=== PATIENT | female | born 1955 | race American Indian/Alaskan Native ===

== ENCOUNTER 2017-01-15 13:25 | Inpatient (IN) | payer MEDICAID ==
[2017-01-15 13:25] VITALS: BMI 33.1
--- NOTE | 2017-01-15 13:52 | C.PDOC ---
History Of Present Illness <Pat Coleman - Last Filed: 01/15/17 14:53> <Lenore Singer - Last Filed: 01/18/17 14:25> 61 y/o female with Hx of asthma and Anxiety presents to ED referred by Dr. Carlin for stable angina and cath. Patient complaints of new onset sob since this morning and persistent chest pain. Patient also reports new onset intermittent right leg swelling for 1 month. Patient had prior right ankle surgery in 2013 and states she is currently wearing ankle brace "because i thought it was from that". Patient denies asthma exacerbating and does not take anxiety medication. HPI limited due to patient's clinical condition LIMITED DUE TO CLIN COND REFERRED FROM DR CARLIN FOR STABLE ANGINA, CATH. CO NEW ONSET SOB SINCE THIS MORNING, PERSIST CP. +HO ASTHMA BUT DENIES ASTHMA EXAC PS NEW ONSET INTERMIT R LEG SWELLING X 1 MONTH. HO PRIOR R ANKLE SURGERY 2013, PS WEARING ANKLE BRACE "BC I THOUGHT SWELLING WAS FROM THAT". HO ANXIETY BUT DENIES ANXIETY MED USE ROS LIMITED EXAM MOD DIST LUNGS CTA B/L NO W/R/R TACHYPNEA SPEAKING 2-3 WORD SENTENCES CV RRR SINUS TACH EXT NO EDEMA; MILD SWELL RLE, +R ANKLE BRACE WARM DRY PSYCH ANXIOUS BUT CALM COOPERATIVE, CONSOLABLE NEURO NO GROSS FOCAL DEF REMAINDER (Pat Coleman) History Per: Patient History/Exam Limitations: no limitations Onset/Duration Of Symptoms: Days Current Symptoms Are (Timing): Still Present Quality: "Pain" <Pat Coleman - Last Filed: 01/15/17 14:53> <Lenore Singer - Last Filed: 01/18/17 14:25> Time Seen by Provider: 01/15/17 13:45 Chief Complaint (Nursing): Chest Pain Past Medical History Reviewed: Historical Data, Nursing Documentation, Vital Signs - Medical History PMH: Arthritis, Asthma, Depression, HTN Other Surgeries: right Ankle surgery Family History: States: No Known Family Hx - Social History Hx Alcohol Use: No Hx Substance Use: No - Immunization History Hx Tetanus Toxoid Vaccination: No Hx Influenza Vaccination: No Hx Pneumococcal Vaccination: No <Pat Coleman - Last Filed: 01/15/17 14:53> Vital Signs: Last Vital Signs Temp 97.4 F L 01/18/17 08:52 Pulse 116 H 01/18/17 10:00 Resp 20 01/18/17 08:52 BP 154/93 H 01/18/17 10:00 Pulse Ox 92 L 01/18/17 08:52 - [employer] Procedures ANKLE FUSION (01/26/14) Review Of Systems Review Of Systems: ROS cannot be obtained secondary to pt's inabilty to answer questions. (Limited) Cardiovascular: Positive for: Chest Pain Respiratory: Positive for: Shortness of Breath <Pat Coleman - Last Filed: 01/15/17 14:53> Physical Exam - Physical Exam Appears: Other (moderate distress) Skin: Normal Color, Warm, Dry, No Rash Head: Atraumatic, Normacephalic Oral Mucosa: Moist Throat: Normal, No Erythema Cardiovascular: Rhythm Regular, No Murmur, Other (tachycardic) Respiratory: No Rales, No Rhonchi, No Wheezing, Other (CTA bilateral, Tachypnea) Extremity: No Pedal Edema, Swelling (RLE), Other (+Right ankle brace) Neurological/Psych: Oriented x3, Other (Anxious but calm, cooperative, consolable. No gross focal deficits) <Pat Coleman - Last Filed: 01/15/17 14:53> ED Course And Treatment - Laboratory Results Result Diagrams: 01/15/17 14:06 01/15/17 14:06 ECG: Interpreted By Me ECG Rhythm: Sinus Tachycardia Rate From EC (bpm) O2 Sat by Pulse Oximetry: 99 (RA) Pulse Ox Interpretation: Normal - Radiology CXR: Interpreted by Me, Viewed By Az CXR Interpretation: Yes: No Acute Disease. No: Infiltrates, Pnemothorax <Pat Coleman - Last Filed: 01/15/17 14:53> - Laboratory Results Result Diagrams: 01/18/17 08:05 01/18/17 08:05 <Lenore Singer - Last Filed: 01/18/17 14:25> Progress - Data Reviewed Data Reviewed: Lab, Diagnostic imaging, EKG, Old records <Pat Coleman - Last Filed: 01/15/17 14:53> <Lenore Singer - Last Filed: 01/18/17 14:25> - Re-Evaluation Re-evaluation Note: 01/15/17 13:52 D/W DR WESTLEY FRAGOSO W ER PLAN 01/15/17 14:03 EKG #2 SINUS TACH, HR 104 UNCH FROM PRIOR 01/15/17 14:35 APPEARS MORE COMFORTABLE, PERSIST TACHYPNEA. VSS,. PERSIST SINUS TACH (Pat Coleman) Disposition <Pat Coleman - Last Filed: 01/15/17 14:53> - Disposition Disposition Time: 16:47 <Lenore Singer - Last Filed: 01/18/17 14:25> - Disposition Disposition: HOSPITALIZED Condition: STABLE - Clinical Impression Clinical Impression: Chest pain, Stable angina, Dyspnea - Scribe Statement The provider has reviewed the documentation as recorded by the Scribe <Pat Coleman - Last Filed: 01/15/17 14:53> <Lenore Singer - Last Filed: 01/18/17 14:25> - Scribe Statement Issa Jovel All medical record entries made by the Scribe were at my direction and personally dictated by me. I have reviewed the chart and agree that the record accurately reflects my personal performance of the history, physical exam, medical decision making, and the department course for this patient. I have also personally directed, reviewed, and agree with the discharge instructions and disposition. (Pat Coleman) Physician Patient Turnover Patient Signed Over To: Lenore Singer Handoff Comments: FU CTA, DOPPLER, DISPO <Pat Coleman - Last Filed: 01/15/17 14:53> Addendum <Pat Coleman - Last Filed: 01/15/17 14:53> <Lenore Singer - Last Filed: 01/18/17 14:25> Addendum: 01/15/17 16:00 Venous doppler- tech leti lara, (-) for acute DVT RLE. 01/15/17 17:39 Accession No. : [id number] Patient Name / ID : ANIBAL ACHARYA / [id number] Exam Date : 01/15/2017 16:36:21 ( Approved ) Study Comment : Sex / Age : F / 61Y Creator : Elena Mckeon MD Dictator : Pattern Technician : Hand Cloth Folder : Elena Mckeon MD Approver2 : Report Date : 01/15/2017 17:25:59 My Comment : CTA chest PE protocol Indication: Shortness of breath, rule out PE Technique: Contiguous axial images were obtained through the chest with intravenous contrast enhancement. Sagittal and coronal reconstructions were generated and reviewed. This CT exam was performed using 1 or more of the falling dose reduction techniques: Automated exposure control, adjustment of the MAA and/or kV according to patient size, and/or use of iterative reconstruction technique. IV Contrast: 100 cc visi opaque 320 Radiation dose (DLP): 503.11 MGy-cm. Comparison: Chest x-ray performed 01/15/17 Findings: Visualized portions of the inferior thyroid gland appears mildly heterogeneous. The mediastinal and hilar vascular structures appear within normal limits. The heart appears within normal limits of size. Dense coronary artery calcifications. There is suboptimal opacification of the pulmonary arteries (less than 190 HU at the main pulmonary artery) due to limiting evaluation for pulmonary embolus. Given this limitation, there are no visible intraluminal filling defects within the central pulmonary arteries to suggest central pulmonary embolism. No focal consolidation. No pleural effusion. No pneumothorax. No suspicious pulmonary nodules measuring greater than 5 mm. Limited visualized portions of the upper abdomen demonstrates bilateral low- density renal lesions, likely cysts. Hypoattenuation of the liver compute stent with hepatic steatosis. Osseous demineralization. Degenerative changes. Kyphosis. Impression: There is suboptimal opacification of the pulmonary arteries (less than 190 HU at the main pulmonary artery) due to limiting evaluation for pulmonary embolus. Given this limitation, there are no visible intraluminal filling defects within the central pulmonary arteries to suggest central pulmonary embolism. No focal consolidation. No pleural effusion. No pneumothorax. Dense coronary artery calcifications. Mildly heterogeneous appearance of the included portions inferior thyroid gland. Limited visualized portions of the upper abdomen demonstrates bilateral low- density renal lesions, likely cysts. Hypoattenuation of the liver compute stent with hepatic steatosis. 01/15/17 17:47 Patient currently resting comfortably, denies chest pain/palpitations at this time. BP elevated 186/116 - patient has taken her Benazepril today, but not Norvasc, will order dose now. Discussed patient with hospitalist Dr. Hernandes, agrees with telemetry admission to her service with Dr. Carlin for cardiology. Diagnoses: chest pain, dyspnea, stable angina, r/o ACS - for cardiac cath by Dr. Carlin. (Lenore Singer)
[2017-01-15] MEDS ORDERED: Enoxaparin 100 mg Syringe SC STA (13:54)
[2017-01-15] MEDS ORDERED: Enoxaparin 40 mg Syringe ONE (14:06)
[2017-01-15 14:18] LABS: BASO % 0.4 % (0.0-2.0); EOS # 0.4 K/uL (0.0-0.7); EOS % 5.3 % (0.0-4.0); HEMATOCRIT 43.1 % (34.0-47.0); LYMPH # 2.7 K/uL (1.0-4.3); LYMPH % 37.9 % (20.0-40.0); MEAN CELL VOLUME 88.2 fL (81.0-99.0); MEAN CORPUSCULAR HEMOGLOBIN 29.4 pg (27.0-31.0); MEAN CORPUSCULAR HGB CONC 33.3 g/dL (33.0-37.0); MEAN PLATELET VOLUME 9.1 fL (7.2-11.7); MONO # 0.6 K/uL (0.0-0.8); MONO % 8.7 % (0.0-10.0); NRBC % 0.1 % (0.0-2.0); RED CELL DISTRIBUTION WIDTH 13.3 % (11.5-14.5); WHITE BLOOD COUNT 7.1 K/uL (4.8-10.8)
[2017-01-15 14:29] LABS: CHLORIDE 99 mmol/L (98-107); SODIUM 140 mmol/L (132-148)
[2017-01-15 14:30] LABS: POTASSIUM 3.8 mmol/L (3.6-5.2)
[2017-01-15 14:31] LABS: GFR AFRICAN-AMERICAN > 60
[2017-01-15 14:32] LABS: ALB/GLOB RATIO 1.3 (1.0-2.1); ALKALINE PHOSPHATASE 145 U/L (38-126); ALT/SGPT 83 U/L (9-52); AST/SGOT 48 U/L (14-36); BILIRUBIN,TOTAL 0.6 mg/dL (0.2-1.3); BLOOD UREA NITROGEN 14 mg/dL (7-17); CARBON DIOXIDE 20 mmol/L (22-30); GLUCOSE,RANDOM 117 mg/dL (65-105); TOTAL PROTEIN 8.1 g/dL (6.3-8.3)
[2017-01-15 14:33] LABS: CALCIUM 9.6 mg/dl (8.6-10.4)
[2017-01-15 15:05] LABS: PARTIAL THROMBOPLASTIN TIME 31 SECONDS (21-34)
[2017-01-15] MEDS ORDERED: Iodixanol 320 MG/ML 100 ML BOTTLE IV ONE (16:35)
--- NOTE | 2017-01-15 16:39 | RAD ---
PROCEDURE: CHEST RADIOGRAPH, 1 VIEW HISTORY: Shortness of breath COMPARISON: None available. FINDINGS: LUNGS: The lungs are clear. PLEURA: No pneumothorax or pleural fluid seen. CARDIOVASCULAR: Normal. OSSEOUS STRUCTURES: No significant abnormalities. VISUALIZED UPPER ABDOMEN: Normal. OTHER FINDINGS: None. IMPRESSION: No active pulmonary disease.
--- NOTE | 2017-01-15 17:27 | CT ---
CTA chest PE protocol Indication: Shortness of breath, rule out PE Technique: Contiguous axial images were obtained through the chest with intravenous contrast enhancement. Sagittal and coronal reconstructions were generated and reviewed. This CT exam was performed using 1 or more of the falling dose reduction techniques: Automated exposure control, adjustment of the MAA and/or kV according to patient size, and/or use of iterative reconstruction technique. IV Contrast: 100 cc visi opaque 320 Radiation dose (DLP): 503.11 MGy-cm. Comparison: Chest x-ray performed 01/15/17 Findings: Visualized portions of the inferior thyroid gland appears mildly heterogeneous. The mediastinal and hilar vascular structures appear within normal limits. The heart appears within normal limits of size. Dense coronary artery calcifications. There is suboptimal opacification of the pulmonary arteries (less than 190 HU at the main pulmonary artery) due to limiting evaluation for pulmonary embolus. Given this limitation, there are no visible intraluminal filling defects within the central pulmonary arteries to suggest central pulmonary embolism. No focal consolidation. No pleural effusion. No pneumothorax. No suspicious pulmonary nodules measuring greater than 5 mm. Limited visualized portions of the upper abdomen demonstrates bilateral low-density renal lesions, likely cysts. Hypoattenuation of the liver compute stent with hepatic steatosis. Osseous demineralization. Degenerative changes. Kyphosis. Impression: There is suboptimal opacification of the pulmonary arteries (less than 190 HU at the main pulmonary artery) due to limiting evaluation for pulmonary embolus. Given this limitation, there are no visible intraluminal filling defects within the central pulmonary arteries to suggest central pulmonary embolism. No focal consolidation. No pleural effusion. No pneumothorax. Dense coronary artery calcifications. Mildly heterogeneous appearance of the included portions inferior thyroid gland. Limited visualized portions of the upper abdomen demonstrates bilateral low-density renal lesions, likely cysts. Hypoattenuation of the liver compute stent with hepatic steatosis.
--- NOTE | 2017-01-15 19:34 | CP.PCM.HP ---
<JennaJocelyne - Last Filed: 01/15/17 20:13> History of Present Illness - History of Present Illness History of Present Illness: History and Physical for Dr. Hernandes Patient presents with shortness of breath which began in the morning and has lasted since arrival to the ED. Patient states she was scheduled for labor representative with Dr. Carlin. Patient was sent from the office due to her shortness of breath. Patient denies chest pain, dizziness. Patient admits to phlegm production. Patient states phlegm is a chronic thing. Patient states she's short of breath after walking usually. Patient states she had an echo on 01/01, which found some diastolic dysfunction. Patient states her winderman told her that she has something in the front of her heart. Patient was worked up for right leg swelling in the past post right ankle surgery. No findings. Patient states she had asthma as a child, which stopped when she was in her 20s. PMH: HTN, DM, asthma. Surgical history: Right ankle surgery (2013) Social Hx: Patient is a former smoker [id number] (quit 15 years ago). Patient drinks about 5 shots of vodka a day due to the fact that her son committed suicide, patient states she has God to help her through the stressors in life. FHx: father had COPD, uncle had VT Present on Admission - Present on Admission Any Indicators Present on Admission: Yes History of DVT/PE: No History of Uncontrolled Diabetes: No Past Patient History - Past Medical History & Family History Past Medical History?: Yes - Past Social History Smoking Status: Former Smoker - CARDIAC Hx Hypertension: Yes - PULMONARY Hx Asthma: Yes - NEUROLOGICAL Hx Neurological Disorder: No - HEENT Hx HEENT Problems: No - RENAL Hx Chronic Kidney Disease: No - ENDOCRINE/METABOLIC Hx Endocrine Disorders: Yes Hx Diabetes Mellitus Type 2: Yes - HEMATOLOGICAL/ONCOLOGICAL Hx Blood Disorders: No - INTEGUMENTARY Hx Dermatological Problems: No - MUSCULOSKELETAL/RHEUMATOLOGICAL Hx Arthritis: Yes - GASTROINTESTINAL Hx Gastrointestinal Disorders: No - GENITOURINARY/GYNECOLOGICAL Hx Genitourinary Disorders: No - PSYCHIATRIC Hx Depression: Yes Hx Substance Use: No - SURGICAL HISTORY Hx Surgeries: Yes Other/Comment: PERONEAL TENDON GROOVING RT ANKLE JAN 2014 - ANESTHESIA Hx Anesthesia: Yes Hx Anesthesia Reactions: No Hx Malignant Hyperthermia: No Meds Allergies/Adverse Reactions: Allergies Allergy/AdvReac Type Severity Reaction Status Date / Time phenobarbital Allergy Verified 01/15/17 13:39 Physical Exam - Constitutional Appears: In Acute Distress - Head Exam Head Exam: NORMAL INSPECTION - Eye Exam Eye Exam: EOMI, Normal appearance - ENT Exam ENT Exam: Mucous Membranes Moist - Neck Exam Neck exam: Positive for: Full Rom. Negative for: Tenderness - Respiratory Exam Respiratory Exam: Accessory Muscle Use, Decreased Breath Sounds - Cardiovascular Exam Cardiovascular Exam: REGULAR RHYTHM, +S1, +S2. absent: Bradycardia, Tachycardia - GI/Abdominal Exam GI & Abdominal Exam: Soft. absent: Firm, Guarding, Tenderness - Extremities Exam Extremities exam: Positive for: full ROM. Negative for: pedal edema Additional comments: right ankle scar from surgery - Back Exam Back exam: FULL ROM, NORMAL INSPECTION - Neurological Exam Neurological exam: Alert, Altered, Oriented x3 - Psychiatric Exam Psychiatric exam: Normal Affect, Normal Mood - Skin Skin Exam: Dry, Intact, Normal Color, Warm Results - Vital Signs Recent Vital Signs: Last Vital Signs Temp 98.9 F 01/15/17 17:49 Pulse 16 L 01/15/17 17:49 Resp 102 H 01/15/17 17:49 BP 166/109 H 01/15/17 17:49 Pulse Ox 100 01/15/17 17:49 - Labs Result Diagrams: 01/15/17 14:06 01/15/17 14:06 Labs: Laboratory Results - last 24 hr 01/15/17 01/15/17 01/15/17 14:04 14:06 14:06 WBC 7.1 RBC 4.89 Hgb 14.4 Hct 43.1 MCV 88.2 MCH 29.4 MCHC 33.3 RDW 13.3 Plt Count 328 MPV 9.1 Neut % (Auto) 47.7 L Lymph % (Auto) 37.9 Stafford % (Auto) 8.7 Eos % (Auto) 5.3 H Baso % (Auto) 0.4 Neut # 3.4 Lymph # 2.7 Stafford # 0.6 Eos # 0.4 Baso # 0.0 PT 10.7 INR 1.0 APTT 31 D-Dimer, Quantitative < 200 Sodium 140 Potassium 3.8 Chloride 99 Carbon Dioxide 20 L Anion Gap 25 H BUN 14 Creatinine 0.7 Est GFR ( Amer) > 60 Est GFR (Non-Af Amer) > 60 POC Glucose (mg/dL) Random Glucose 117 H Calcium 9.6 Total Bilirubin 0.6 AST 48 H ALT 83 H Alkaline Phosphatase 145 H Troponin I < 0.0120 NT-Pro-B Natriuret Pep 58.5 Total Protein 8.1 Albumin 4.6 Globulin 3.4 Albumin/Globulin Ratio 1.3 01/15/17 14:10 WBC RBC Hgb Hct MCV MCH MCHC RDW Plt Count MPV Neut % (Auto) Lymph % (Auto) Stafford % (Auto) Eos % (Auto) Baso % (Auto) Neut # Lymph # Stafford # Eos # Baso # PT INR APTT D-Dimer, Quantitative Sodium Potassium Chloride Carbon Dioxide Anion Gap BUN Creatinine Est GFR ( Amer) Est GFR (Non-Af Amer) POC Glucose (mg/dL) 135 H Random Glucose Calcium Total Bilirubin AST ALT Alkaline Phosphatase Troponin I NT-Pro-B Natriuret Pep Total Protein Albumin Globulin Albumin/Globulin Ratio Assessment & Plan - Assessment and Plan (Free Text) Assessment: Shortness of breath CT chest: no PE Doppler r/o DVT, f/u final read h/o asthma; mild exacerbation Abnormal stress test NS @ 50cc/hr for labor representative tomorrow with Dr. Carlin Cardiology Consult: Dr. Tesfaye RETANA, Q6H x 3 EKG mucomyst 20% 4ml Q12H ASA 81mg PO x once Norvasc 5mg PO x 1 day Diabetes Accucheck QACHS A1c in AM, Lipid Panel hold glipizide HTN benzapril/hydrochlorothiazide equivalent Hydralazine 10mg IVQ6H PRN SBP>160 Norvasc Asthma, mild intermittent albuterol 3ml Q6HR PRN Solumedrol 40mg IV Q12H Allergies trees, weather changes Tobacco use history stopped 15 years ago counseled to stop Depression, Alcohol abuse counseled to stop drinking declined psychiatry help during stay at this time PT OT evaluation Pepcid 20 mg IV Q12 Received Lovenox 100mg SQx1 Hold anticoagulation per cardiology - Date & Time Date: 01/15/17 Time: 20:18 <Sheri Hernandes V - Last Filed: 01/17/17 23:47> Results - Vital Signs Recent Vital Signs: Last Vital Signs Temp 97.8 F 01/15/17 23:47 Pulse 94 H 01/16/17 02:50 Resp 22 01/15/17 23:47 BP 179/93 H 01/16/17 06:35 Pulse Ox 97 01/15/17 23:47 - Labs Result Diagrams: 01/17/17 07:37 01/17/17 07:37 Labs: Laboratory Results - last 24 hr 01/15/17 01/15/17 01/15/17 14:04 14:06 14:06 WBC 7.1 RBC 4.89 Hgb 14.4 Hct 43.1 MCV 88.2 MCH 29.4 MCHC 33.3 RDW 13.3 Plt Count 328 MPV 9.1 Neut % (Auto) 47.7 L Lymph % (Auto) 37.9 Stafford % (Auto) 8.7 Eos % (Auto) 5.3 H Baso % (Auto) 0.4 Neut # 3.4 Lymph # 2.7 Stafford # 0.6 Eos # 0.4 Baso # 0.0 PT 10.7 INR 1.0 APTT 31 D-Dimer, Quantitative < 200 Puncture Site pCO2 pO2 HCO3 ABG pH ABG Total CO2 ABG O2 Saturation ABG Base Excess Lisandro Test ABG Potassium A-a O2 Difference Respiratory Index Glucose Lactate Liter Flow FiO2 Sodium 140 Potassium 3.8 Chloride 99 Carbon Dioxide 20 L Anion Gap 25 H BUN 14 Creatinine 0.7 Est GFR ( Amer) > 60 Est GFR (Non-Af Amer) > 60 POC Glucose (mg/dL) Random Glucose 117 H Hemoglobin A1c Calcium 9.6 Total Bilirubin 0.6 AST 48 H ALT 83 H Alkaline Phosphatase 145 H Total Creatine Kinase CK-MB (Mass) Troponin I < 0.0120 Troponin I, Quant NT-Pro-B Natriuret Pep 58.5 Total Protein 8.1 Albumin 4.6 Globulin 3.4 Albumin/Globulin Ratio 1.3 Arterial Blood Potassium 01/15/17 01/15/17 01/15/17 14:10 21:46 22:18 WBC RBC Hgb Hct MCV MCH MCHC RDW Plt Count MPV Neut % (Auto) Lymph % (Auto) Stafford % (Auto) Eos % (Auto) Baso % (Auto) Neut # Lymph # Stafford # Eos # Baso # PT INR APTT D-Dimer, Quantitative Puncture Site pCO2 pO2 HCO3 ABG pH ABG Total CO2 ABG O2 Saturation ABG Base Excess Lisandro Test ABG Potassium A-a O2 Difference Respiratory Index Glucose Lactate Liter Flow FiO2 Sodium Potassium Chloride Carbon Dioxide Anion Gap BUN Creatinine Est GFR ( Amer) Est GFR (Non-Af Amer) POC Glucose (mg/dL) 135 H 170 H Random Glucose Hemoglobin A1c Calcium Total Bilirubin AST ALT Alkaline Phosphatase Total Creatine Kinase 49 CK-MB (Mass) 0.35 Troponin I Troponin I, Quant < 0.0120 NT-Pro-B Natriuret Pep Total Protein Albumin Globulin Albumin/Globulin Ratio Arterial Blood Potassium 01/16/17 01/16/17 01/16/17 02:20 06:26 08:17 WBC RBC Hgb Hct MCV MCH MCHC RDW Plt Count MPV Neut % (Auto) Lymph % (Auto) Stafford % (Auto) Eos % (Auto) Baso % (Auto) Neut # Lymph # Stafford # Eos # Baso # PT INR APTT D-Dimer, Quantitative Puncture Site pCO2 pO2 HCO3 ABG pH ABG Total CO2 ABG O2 Saturation ABG Base Excess Lisandro Test ABG Potassium A-a O2 Difference Respiratory Index Glucose Lactate Liter Flow FiO2 Sodium Potassium Chloride Carbon Dioxide Anion Gap BUN Creatinine Est GFR ( Amer) Est GFR (Non-Af Amer) POC Glucose (mg/dL) 203 H Random Glucose Hemoglobin A1c 9.7 H Calcium Total Bilirubin AST ALT Alkaline Phosphatase Total Creatine Kinase 53 CK-MB (Mass) 0.38 Troponin I Troponin I, Quant < 0.0120 NT-Pro-B Natriuret Pep Total Protein Albumin Globulin Albumin/Globulin Ratio Arterial Blood Potassium 01/16/17 09:13 WBC RBC Hgb Hct MCV MCH MCHC RDW Plt Count MPV Neut % (Auto) Lymph % (Auto) Stafford % (Auto) Eos % (Auto) Baso % (Auto) Neut # Lymph # Stafford # Eos # Baso # PT INR APTT D-Dimer, Quantitative Puncture Site Rr pCO2 28 L pO2 88 HCO3 23.4 ABG pH 7.47 H ABG Total CO2 21.3 L ABG O2 Saturation 98.9 H ABG Base Excess -2.0 Lisandro Test Pos ABG Potassium 3.3 L A-a O2 Difference 91.0 Respiratory Index 1.0 Glucose 236 H Lactate 2.1 Liter Flow 3.0 FiO2 30.0 Sodium 138.0 Potassium Chloride 107.0 Carbon Dioxide Anion Gap BUN Creatinine Est GFR ( Amer) Est GFR (Non-Af Amer) POC Glucose (mg/dL) Random Glucose Hemoglobin A1c Calcium Total Bilirubin AST ALT Alkaline Phosphatase Total Creatine Kinase CK-MB (Mass) Troponin I Troponin I, Quant NT-Pro-B Natriuret Pep Total Protein Albumin Globulin Albumin/Globulin Ratio Arterial Blood Potassium 3.3 L Attending/Attestation - Attestation I have personally seen and examined this patient.: Yes I have fully participated in the care of the patient.: Yes I have reviewed all pertinent clinical information: Yes Notes (Text): This is late computer entry for 01/15/17. Patient seen, examined, and case discussed with day-time resident. Patient seen in ED in [facility] Bed 12 at approximately 7PM with Dr. Carlin at bedside. Spoke with Dr. Hines, patient had came into the ED with complaint of shortness of breathe at shift change--> rule out for PE and DVT. Patient had received therapuetic Lovenox 100mg subq X1 in the ED. Patient seen by Dr. Carlin, she has history of abnormal stress and previously scheduled for cardiac catheterization the morning. Recommended to hold anticoagulation for anticipated cardiac cath tomorrow. Patient started on gentle IV hydration in light of completed contrast CT earlier with mucomyst to prevent contrast induced nephropathy. Patient has history of asthma, and felt shortness of breathe overnight. Discussed admitting orders with day-time resident. Assessment/Plan 1) Shortness of breath * CT chest (01/15/17): suboptimal opacification of pulmonary arteries due to limiting evaluation for PE. No visible intraluminal filling defects within the central pulmonary arteries to suggest central PE. No focal consolidation. No pleural effusion. No pneumothorax. Dense coronary artery calcifications. Mildly heterogeneous appearance of the included portions inferior thyroid gland. Limited visualized portions of the upper abdomen demonstrates bilateral low density renal lesions, likely cysts. Hypotenuattion of liver compute stent with hepatic steatosis * Doppler r/o DVT, f/u final read * History of Asthma-->mild exacerbation; given Solumedrol 40mg IVP X1 on admission 2) h/o asthma; mild exacerbation * Given Solumedrol 40mg IV X1 * albuterol 3ml Q6HR PRN * Solumedrol 40mg IV Q12H * Allergies trees, weather changes 3) Abnormal stress test * Cardiology Consult: Dr. Cralin help appreciated * MAZIN and EKG Q6H x 3 * Prior to cath, mucomyst 20% 4ml Q12H and NS 50cc/hr * ASA 81mg PO daily 4) Diabetes * Accucheck QACHS * A1c in AM, Lipid Panel * hold glipizide 5) Hypertension * benzapril/hydrochlorothiazide equivalent-->benzapril not available on hospital formulary-->start on hospital equivalent * Hydralazine 10mg IVQ6H PRN SBP>160 * Norvasc 5mg PO X1 given for uncontrolled hypertension 6) Tobacco use history * stopped 15 years ago * Tobacco cessation provided 7) Depression, Alcohol abuse * Triggered by brother's suicide * declined psychiatry help during stay at this time 8) Prophylactic care * PT OT evaluation * Pepcid 20 mg IV Q12 * Received Lovenox 100mg SQx1 * Hold anticoagulation per cardiology
[2017-01-15] MEDS ORDERED: Albuterol HFA 90 mcg/actuation (8 g) IH PRN (19:36)
[2017-01-15] MEDS ORDERED: Sodium Chloride 0.9% 1,000 ML IV SCH (20:00)
[2017-01-15] MEDS ORDERED: Albuterol-Ipratrop 3 mg / 0.5 (3 ml) UD INH SCH (20:00)
[2017-01-15] MEDS ORDERED: Albuterol HFA 90 mcg/actuation (8 g) INH PRN (20:00)
[2017-01-15] MEDS ORDERED: MethylPREDNISolone 40 mg Vial IVP STA (20:02)
[2017-01-15] MEDS ORDERED: Sodium Chloride 0.9% 1,000 ML ONE (20:25)
[2017-01-15] MEDS: Sodium Chloride 0.9% 1,000 ML IV SCH (20:28)
[2017-01-15] MEDS ORDERED: Acetylcysteine 20% Inhal Soln (4ml) INH SCH ×2 (20:30→22:05)
[2017-01-16] MEDS: Albuterol-Ipratrop 3 mg / 0.5 (3 ml) UD INH SCH ×4 (02:47→19:21)
[2017-01-16] MEDS ORDERED: MethylPREDNISolone 40 mg Vial IVP SCH (08:00)
--- NOTE | 2017-01-16 08:36 | CP.PCM.CON ---
History of Present Illness - History of Present Illness History of Present Illness: 61 F admitted for dyspnea Positive stress test Could not cath today due to dyspnea Pulmonary consulted Will reschedule for tomorrow if stable Review of Systems - Constitutional Constitutional: absent: As Per HPI, Anorexia, Chills, Daytime Sleepiness, Excessive Sweating, Fatigue, Fever, Frequent Falls, Headache, Increased Appetite , Lethargy, Malaise, Night Sweats, Snoring, Sleep Apnea, Weight Gain, Weight Loss, Weakness, Other - EENT Eyes: absent: As Per HPI, Blind Spots, Blurred Vision, Change in Vision, Decreased Night Vision, Diplopia, Discharge, Dry Eye, Exophthalmos, Floaters, Irritation, Itchy Eyes, Loss of Peripheral Vision, Pain, Photophobia, Requires Corrective Lenses, Sees Flashes, Spots in Vision, Tunnel Vision, Other Visual Disturbances, Loss of Vision, Other Nose/Mouth/Throat: absent: As Per HPI, Epistaxis, Nasal Congestion, Nasal Discharge, Nasal Obstruction, Nasal Trauma, Nose Pain, Post Nasal Drip, Sinus Pain, Sinus Pressure, Bleeding Gums, Change in Voice, Dental Pain, Dry Mouth, Dysphagia, Halitosis, Hoarsness, Lip Swelling, Mouth Lesions, Mouth Pain, Odynophagia, Sore Throat, Throat Swelling, Tongue Swelling, Facial Pain, Neck Pain, Neck Mass, Other - Cardiovascular Cardiovascular: Dyspnea. absent: Chest Pain - Respiratory Respiratory: Dyspnea - Gastrointestinal Gastrointestinal: absent: As Per HPI, Abdominal Pain, Belching, Bloating, Change in Bowel Habits, Change in Stool Character, Coffee Ground Emesis, Constipation, Cramping, Diarrhea, Dyspepsia, Dysphagia, Early Satiety, Excessive Flatus, Fecal Incontinence, Heartburn, Hematemesis, Hematochezia, Loose Stools, Melena, Nausea, Odynophagia, Temesmus, Vomiting, Other Past Patient History - Past Medical History & Family History Past Medical History?: Yes - Past Social History Smoking Status: Former Smoker - CARDIAC Hx Cardiac Disorders: Yes Hx Hypertension: Yes - PULMONARY Hx Respiratory Disorders: Yes Hx Asthma: Yes - NEUROLOGICAL Hx Neurological Disorder: No - HEENT Hx HEENT Problems: No - RENAL Hx Chronic Kidney Disease: No - ENDOCRINE/METABOLIC Hx Endocrine Disorders: Yes Hx Diabetes Mellitus Type 2: Yes - HEMATOLOGICAL/ONCOLOGICAL Hx Blood Disorders: No - INTEGUMENTARY Hx Dermatological Problems: No - MUSCULOSKELETAL/RHEUMATOLOGICAL Hx Musculoskeletal Disorders: Yes Hx Arthritis: Yes Hx Falls: No - GASTROINTESTINAL Hx Gastrointestinal Disorders: No - GENITOURINARY/GYNECOLOGICAL Hx Genitourinary Disorders: No - PSYCHIATRIC Hx Psychophysiologic Disorder: Yes Hx Depression: Yes Hx Substance Use: Yes - SURGICAL HISTORY Hx Surgeries: Yes Other/Comment: PERONEAL TENDON GROOVING RT ANKLE JAN 2014 - ANESTHESIA Hx Anesthesia: Yes Hx Anesthesia Reactions: No Hx Malignant Hyperthermia: No Has any member of the family had a problem w/ anesthesia?: No Meds Allergies/Adverse Reactions: Allergies Allergy/AdvReac Type Severity Reaction Status Date / Time phenobarbital Allergy Verified 01/15/17 13:39 - Medications Medications: Current Medications Albuterol (Ventolin Hfa 90 Mcg/Actuation (8 G)) 1 puff INH Q6H PRN PRN Reason: Shortness of Breath Albuterol/Ipratropium (Duoneb 3 Mg/0.5 Mg (3 Ml) Ud) 3 ml INH RQ6 [facility] Last Admin: 01/16/17 08:08 Dose: Not Given Amlodipine Besylate (Norvasc) 5 mg PO DAILY [facility] Enalapril Maleate (Vasotec) 10 mg PO DAILY [facility] Famotidine (Pepcid) 20 mg PO DAILY [facility] Hydralazine HCl (Apresoline) 10 mg IVP Q6H PRN PRN Reason: Systolic Blood Pressure >160 Last Admin: 01/16/17 06:37 Dose: 10 mg Hydrochlorothiazide (Microzide) 12.5 mg PO DAILY [facility] Sodium Chloride (Sodium Chloride 0.9%) 1,000 mls @ 50 mls/hr IV .Q20H [facility] Last Admin: 01/15/17 20:28 Dose: 50 mls/hr Influenza Virus Vaccine (Afluria) 45 mcg IM .ONCE ONE Stop: 01/18/17 10:01 Methylprednisolone (Solu-Medrol) 40 mg IVP Q8H [facility] Pneumococcal Polyvalent Vaccine (Pneumovax 23 Vaccine) 0.5 ml IM .ONCE ONE Stop: 01/18/17 10:01 Zolpidem Tartrate (Ambien) 5 mg PO HS [facility] Last Admin: 01/15/17 22:46 Dose: 5 mg Physical Exam - Head Exam Head Exam: ATRAUMATIC - Eye Exam Eye Exam: EOMI, PERRL - ENT Exam ENT Exam: Mucous Membranes Moist - Neck Exam Neck exam: Positive for: Normal Inspection - Respiratory Exam Respiratory Exam: Decreased Breath Sounds - Cardiovascular Exam Cardiovascular Exam: REGULAR RHYTHM, +S1, +S2 - GI/Abdominal Exam GI & Abdominal Exam: Normal Bowel Sounds, Soft Results - Vital Signs Recent Vital Signs: Last Vital Signs Temp 97.8 F 01/15/17 23:47 Pulse 94 H 01/16/17 02:50 Resp 22 01/15/17 23:47 BP 179/93 H 01/16/17 06:35 Pulse Ox 97 01/15/17 23:47 - Labs Result Diagrams: 01/15/17 14:06 01/15/17 14:06 Labs: Laboratory Results - last 24 hr 01/15/17 01/15/17 01/15/17 14:04 14:06 14:06 WBC 7.1 RBC 4.89 Hgb 14.4 Hct 43.1 MCV 88.2 MCH 29.4 MCHC 33.3 RDW 13.3 Plt Count 328 MPV 9.1 Neut % (Auto) 47.7 L Lymph % (Auto) 37.9 [place] % (Auto) 8.7 Eos % (Auto) 5.3 H Baso % (Auto) 0.4 Neut # 3.4 Lymph # 2.7 [place] # 0.6 Eos # 0.4 Baso # 0.0 PT 10.7 INR 1.0 APTT 31 D-Dimer, Quantitative < 200 Sodium 140 Potassium 3.8 Chloride 99 Carbon Dioxide 20 L Anion Gap 25 H BUN 14 Creatinine 0.7 Est GFR ( Amer) > 60 Est GFR (Non-Af Amer) > 60 POC Glucose (mg/dL) Random Glucose 117 H Calcium 9.6 Total Bilirubin 0.6 AST 48 H ALT 83 H Alkaline Phosphatase 145 H Total Creatine Kinase CK-MB (Mass) Troponin I < 0.0120 Troponin I, Quant NT-Pro-B Natriuret Pep 58.5 Total Protein 8.1 Albumin 4.6 Globulin 3.4 Albumin/Globulin Ratio 1.3 01/15/17 01/15/17 01/15/17 14:10 21:46 22:18 WBC RBC Hgb Hct MCV MCH MCHC RDW Plt Count MPV Neut % (Auto) Lymph % (Auto) [place] % (Auto) Eos % (Auto) Baso % (Auto) Neut # Lymph # [place] # Eos # Baso # PT INR APTT D-Dimer, Quantitative Sodium Potassium Chloride Carbon Dioxide Anion Gap BUN Creatinine Est GFR ( Amer) Est GFR (Non-Af Amer) POC Glucose (mg/dL) 135 H 170 H Random Glucose Calcium Total Bilirubin AST ALT Alkaline Phosphatase Total Creatine Kinase 49 CK-MB (Mass) 0.35 Troponin I Troponin I, Quant < 0.0120 NT-Pro-B Natriuret Pep Total Protein Albumin Globulin Albumin/Globulin Ratio 01/16/17 01/16/17 02:20 06:26 WBC RBC Hgb Hct MCV MCH MCHC RDW Plt Count MPV Neut % (Auto) Lymph % (Auto) [place] % (Auto) Eos % (Auto) Baso % (Auto) Neut # Lymph # [place] # Eos # Baso # PT INR APTT D-Dimer, Quantitative Sodium Potassium Chloride Carbon Dioxide Anion Gap BUN Creatinine Est GFR ( Amer) Est GFR (Non-Af Amer) POC Glucose (mg/dL) 203 H Random Glucose Calcium Total Bilirubin AST ALT Alkaline Phosphatase Total Creatine Kinase 53 CK-MB (Mass) 0.38 Troponin I Troponin I, Quant < 0.0120 NT-Pro-B Natriuret Pep Total Protein Albumin Globulin Albumin/Globulin Ratio Assessment & Plan - Assessment and Plan (Free Text) Assessment: 1. CAD with abnormal stress test 2. dyspnea at rest 3. DM 2 For cath once patient beathing improves NO Pulmoary Embolism, ProBNP and d dimres normal Continue ASA and DVT/GI prophylaxis
[2017-01-16 09:17] LABS: ABG ALLEN TEST POS; DRAW SITE RR
[2017-01-16] MEDS: MethylPREDNISolone 40 mg Vial IVP SCH ×2 (09:50→17:04)
--- NOTE | 2017-01-16 11:18 | CP.PCM.PN ---
Addendum entered and electronically signed by Jocelyne West DO 01/16/17 13:38: CT chest showed: suboptimal opacification of pulmonary arteries <190 HU, no visible intraluminal filling defects to suggest central pulmonary embolism Original Note: <Jocelyne West - Last Filed: 01/16/17 11:27> Subjective - Date & Time of Evaluation Date of Evaluation: 01/16/17 Time of Evaluation: 11:15 - Subjective Subjective: Internal Medicine progress note for Dr. Hernandes Patient seen an examined at bedside. Patient states she's feeling better today than yesterday. Patient states she has a headache and that her blood pressure is high today. Patient denies nausea, fever, chills, vomiting, chest pain. Patient admits to shortness of breath. Patient was scheduled for label rewinder today by Dr. Carlin, but was found to be too dysnpeic. Pulmonology consult was ordered this morning. Objective - Vital Signs/Intake and Output Vital Signs (last 24 hours): Temp Pulse Resp BP Pulse Ox 97.8 F 94 H 22 153/92 H 97 01/15/17 23:47 01/16/17 02:50 01/15/17 23:47 01/16/17 11:00 01/15/17 23:47 - Medications Medications: Current Medications Albuterol (Ventolin Hfa 90 Mcg/Actuation (8 G)) 1 puff INH Q6H PRN PRN Reason: Shortness of Breath Albuterol/Ipratropium (Duoneb 3 Mg/0.5 Mg (3 Ml) Ud) 3 ml INH RQ6 [facility] Last Admin: 01/16/17 08:08 Dose: Not Given Amlodipine Besylate (Norvasc) 5 mg PO DAILY [facility] Last Admin: 01/16/17 11:00 Dose: 5 mg Enalapril Maleate (Vasotec) 10 mg PO DAILY [facility] Last Admin: 01/16/17 11:00 Dose: 10 mg Famotidine (Pepcid) 20 mg PO DAILY [facility] Last Admin: 01/16/17 11:00 Dose: 20 mg Hydralazine HCl (Apresoline) 10 mg IVP Q6H PRN PRN Reason: Systolic Blood Pressure >160 Last Admin: 01/16/17 06:37 Dose: 10 mg Hydrochlorothiazide (Microzide) 12.5 mg PO DAILY [facility] Last Admin: 01/16/17 11:00 Dose: 12.5 mg Sodium Chloride (Sodium Chloride 0.9%) 1,000 mls @ 50 mls/hr IV .Q20H [facility] Last Admin: 01/15/17 20:28 Dose: 50 mls/hr Ibuprofen (Motrin Tab) 400 mg PO STAT [facility] Stop: 01/16/17 11:14 Influenza Virus Vaccine (Afluria) 45 mcg IM .ONCE ONE Stop: 01/18/17 10:01 Methylprednisolone (Solu-Medrol) 40 mg IVP Q8H [facility] Last Admin: 01/16/17 09:50 Dose: 40 mg Pneumococcal Polyvalent Vaccine (Pneumovax 23 Vaccine) 0.5 ml IM .ONCE ONE Stop: 01/18/17 10:01 Zolpidem Tartrate (Ambien) 5 mg PO HS [facility] Last Admin: 01/15/17 22:46 Dose: 5 mg - Labs Labs: 01/15/17 14:06 01/15/17 14:06 PT 10.7 SECONDS (9.7-12.2) 01/15/17 14:04 INR 1.0 01/15/17 14:04 APTT 31 SECONDS (21-34) 01/15/17 14:04 - Constitutional Appears: Non-toxic, Other (patient appears comfortable, with no respiratory distress. ) - Eye Exam Eye Exam: EOMI - ENT Exam ENT Exam: Mucous Membranes Moist - Neck Exam Neck Exam: Full ROM - Respiratory Exam Respiratory Exam: NORMAL BREATHING PATTERN. absent: Accessory Muscle Use, Respiratory Distress - Cardiovascular Exam Cardiovascular Exam: REGULAR RHYTHM, +S1, +S2. absent: Bradycardia - GI/Abdominal Exam GI & Abdominal Exam: Soft. absent: Tenderness - Extremities Exam Extremities Exam: Full ROM. absent: Pedal Edema - Neurological Exam Neurological Exam: Alert, Awake, Oriented x3 - Psychiatric Exam Psychiatric exam: Normal Affect, Normal Mood - Skin Skin Exam: Dry, Intact, Normal Color, Warm Assessment and Plan - Assessment and Plan (Free Text) Assessment: Shortness of breath CT chest: no PE Doppler r/o DVT, f/u final read Pulmonology consult: Dr. 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 Carlin Cardiology Consult: Dr. Tesfaye RETANA, Q6H x 3 EKG mucomyst 20% 4ml Q12H ASA 81mg POQD per Cardiology Norvasc 5mg PO x 1 day Diabetes Accucheck QACHS A1c in AM, Lipid Panel hold glipizide HTN benzapril/hydrochlorothiazide equivalent Hydralazine 10mg IVQ6H PRN SBP>160 Norvasc Asthma, mild intermittent albuterol 3ml Q6HR PRN Solumedrol 40mg IV Q12H Allergies trees, weather changes h/o asthma; mild exacerbation Tobacco use history stopped 15 years ago counseled to stop Depression, Alcohol abuse counseled to stop drinking declined psychiatry help during stay at this time PT OT evaluation Headache Motrin 400mg stat dose Prophylaxis Pepcid 20 mg IV Q12 Received Lovenox 100mg SQx1 Continue ASA and DVT/GI prophylaxis 01/16 per Cardio Cath Procedure tomorrow per Dr. Carlin if patient is stable. <Sheri Hernandes V - Last Filed: 01/17/17 23:57> Objective - Vital Signs/Intake and Output Vital Signs (last 24 hours): Temp Pulse Resp BP Pulse Ox 98.0 F 114 H 20 133/77 95 01/17/17 16:00 01/17/17 18:00 01/17/17 16:00 01/17/17 16:00 01/17/17 16:00 Intake and Output: 01/17/17 01/18/17 18:59 06:59 Intake Total 220 Balance 220 - Medications Medications: Current Medications Acetaminophen (Tylenol 325mg Tab) 650 mg PO Q6 PRN PRN Reason: Pain, Mild (1-3) Albuterol (Ventolin Hfa 90 Mcg/Actuation (8 G)) 1 puff INH Q6H PRN PRN Reason: Shortness of Breath Albuterol/Ipratropium (Duoneb 3 Mg/0.5 Mg (3 Ml) Ud) 3 ml INH RQ6 [facility] Last Admin: 01/17/17 20:17 Dose: 3 ml Amlodipine Besylate (Norvasc) 5 mg PO DAILY [facility] Last Admin: 01/17/17 10:46 Dose: 5 mg Aspirin (Ecotrin) 81 mg PO DAILY [facility] Last Admin: 01/17/17 15:20 Dose: 81 mg Dextrose (Dextrose 50% Inj) 0 ml IV STAT PRN; Protocol PRN Reason: Hyglycemia Protocol Dextrose (Glutose 15) 0 gm PO ONCE PRN; Protocol PRN Reason: Hypoglycemia Protocol Enalapril Maleate (Vasotec) 10 mg PO DAILY [facility] Last Admin: 01/17/17 10:46 Dose: 10 mg Famotidine (Pepcid) 20 mg PO DAILY [facility] Last Admin: 01/17/17 10:46 Dose: 20 mg Glipizide (Glucotrol) 5 mg PO DAILY [facility] Last Admin: 01/17/17 10:46 Dose: 5 mg Glucagon (Glucagen Diagnostic Kit) 0 mg IM STAT PRN; Protocol PRN Reason: Hypoglycemia Protocol Hydralazine HCl (Apresoline) 10 mg IVP Q6H PRN PRN Reason: Systolic Blood Pressure >160 Last Admin: 01/16/17 06:37 Dose: 10 mg Hydrochlorothiazide (Microzide) 12.5 mg PO DAILY [facility] Last Admin: 01/17/17 10:46 Dose: 12.5 mg Sodium Chloride (Sodium Chloride 0.45%) 1,000 mls @ 70 mls/hr IV .[id number] [facility] Stop: 01/18/17 03:00 Last Admin: 01/17/17 21:31 Dose: Not Given Dextrose (Dextrose 5% In Water 1000 Ml) 1,000 mls @ 0 mls/hr IV .Q0M PRN; Protocol; Per Protocol PRN Reason: Hypoglycemia Protocol Methylprednisolone (Solu-Medrol) 40 mg IVP Q12 [facility] Last Admin: 01/17/17 22:02 Dose: 40 mg Morphine Sulfate (Morphine) 1 mg IVP Q4 PRN PRN Reason: Pain, moderate (4-7) Last Admin: 01/17/17 17:20 Dose: 1 mg Pneumococcal Polyvalent Vaccine (Pneumovax 23 Vaccine) 0.5 ml IM .ONCE ONE Stop: 01/18/17 10:01 Zolpidem Tartrate (Ambien) 5 mg PO HS [facility] Last Admin: 01/17/17 22:01 Dose: 5 mg - Labs Labs: 01/17/17 07:37 01/17/17 07:37 PT 10.7 SECONDS (9.7-12.2) 01/15/17 14:04 INR 1.0 01/15/17 14:04 APTT 32 SECONDS (21-34) 01/16/17 16:48 Attending/Attestation - Attestation I have personally seen and examined this patient.: Yes I have fully participated in the care of the patient.: Yes I have reviewed all pertinent clinical information, including history, physical exam and plan: Yes Notes (Text): This is late computer entry for 01/16/17. Patient seen, examined and case discussed with day-time resident. Discussed with cardiology, patient's cardiac cath was cancelled this morning. Patient unable to tolerate lying and reporting shortness of breathe. Cardiology requesting for pulmonary consult. Patient ordered for ABG this morning. Patient is not hypoxic. Increased Solumedrol 40mg IV Q8H Ordered for urine legionella, mycoplasma IgM, Strep pneumonia urine, and influenza Cardiology to attempt cardiac cath tomorrow 01/17/17 Assessment/Plan 1) Shortness of breath * CT chest (01/15/17): suboptimal opacification of pulmonary arteries due to limiting evaluation for PE. No visible intraluminal filling defects within the central pulmonary arteries to suggest central PE. No focal consolidation. No pleural effusion. No pneumothorax. Dense coronary artery calcifications. Mildly heterogeneous appearance of the included portions inferior thyroid gland. Limited visualized portions of the upper abdomen demonstrates bilateral low density renal lesions, likely cysts. Hypotenuattion of liver compute stent with hepatic steatosis * Doppler r/o DVT, f/u final read * d-dimer:negative * History of Asthma-->mild exacerbation; given Solumedrol 40mg IVP X1 on admission 2) h/o asthma; mild exacerbation * Pulmonary, Dr. Parar on consult * ABG ordered * Given Solumedrol 40mg IV X1 on admission * albuterol 3ml Q6HR PRN * Solumedrol 40mg IV Q8H * Triggers: Allergies trees, weather changes * CT chest (01/15/17): suboptimal opacification of pulmonary arteries due to limiting evaluation for PE. No visible intraluminal filling defects within the central pulmonary arteries to suggest central PE. No focal consolidation. No pleural effusion. No pneumothorax. Dense coronary artery calcifications. Mildly heterogeneous appearance of the included portions inferior thyroid gland. Limited visualized portions of the upper abdomen demonstrates bilateral low density renal lesions, likely cysts. Hypotenuattion of liver compute stent with hepatic steatosis 3) Abnormal stress test * Cardiology Consult: Dr. Carlin help appreciated * MAZIN X3: negative * Prior to cath, mucomyst 20% 4ml Q12H and NS 50cc/hr * Rescheduled for tomorrow 01/17 following evaluation by pulm * ASA 81mg PO daily 4) Diabetes * Accucheck QACHS * A1c:9.7 uncontrolled Lipid Panel: T, chol: 175, LDL:74 HDL:76 * hold glipizide on admission 5) Hypertension * benzapril/hydrochlorothiazide equivalent-->benzapril not available on hospital formulary-->start on hospital equivalent: Enalapril 10mg PO daily and HCTZ 12.5mg PO daily * Hydralazine 10mg IVQ6H PRN SBP>160 * Norvasc 5mg PO daily 6) Tobacco use history * stopped 15 years ago * Tobacco cessation provided 7) Depression, Alcohol abuse * Triggered by brother's suicide * declined psychiatry help during stay at this time * Ambien 5mg PO qHS (takes 10mg PO qhs for insomnia at [facility]) 8) Prophylactic care * PT OT evaluation * Pepcid 20 mg IV Q12 * Heparin dvt started and held secondary to cardiac cath tomorrow
[2017-01-16 13:16] LABS: BASO # 0.1 K/uL (0.0-0.2); BASO % 0.8 % (0.0-2.0); EOS % 0.3 % (0.0-4.0); LYMPH # 1.9 K/uL (1.0-4.3); MEAN CELL VOLUME 89.2 fL (81.0-99.0); MEAN CORPUSCULAR HEMOGLOBIN 29.2 pg (27.0-31.0); MEAN CORPUSCULAR HGB CONC 32.8 g/dL (33.0-37.0); MEAN PLATELET VOLUME 8.2 fL (7.2-11.7); MONO # 0.7 K/uL (0.0-0.8); MONO % 7.7 % (0.0-10.0); RED CELL DISTRIBUTION WIDTH 15.1 % (11.5-14.5); WHITE BLOOD COUNT 9.7 K/uL (4.8-10.8)
[2017-01-16 13:34] LABS: CHOLESTEROL 175 mg/dL (0-199)
--- NOTE | 2017-01-16 13:47 | VASCLAB ---
PROCEDURE: Right Lower Extremity Venous Duplex Exam. HISTORY: SWELLING PRIORS: None. TECHNIQUE: Right common femoral, femoral, popliteal and posterior tibial, peroneal and great saphenous veins were evaluated. Flow was assessed with color Doppler, compressibility, assessment of phasic flow and augmentation response. Report prepared by FORTINO Flanagan, RVT FINDINGS: RIGHT: 1. Common Femoral Vein: 1.1. Compressibility - Fully compressible: Thrombus - None: Flow - Phasic: Augmentation -Normal: Reflux - None. 2. Femoral Vein: 2.1. Compressibility - Fully compressible: Thrombus - None: Flow - Phasic: Augmentation -Normal: Reflux - None. 3. Popliteal Vein: 3.1. Compressibility - Fully compressible: Thrombus - None: Flow - Phasic: Augmentation -Normal: Reflux - None. 4. Posterior Tibial Vein: 4.1. Compressibility - Fully compressible: Thrombus - None: Flow - Phasic: Augmentation -Normal: Reflux - None. 5. Peroneal Vein: 5.1. Compressibility - Fully compressible: Thrombus - None: Flow - Phasic: Augmentation -Normal: Reflux - None. 6. Great Saphenous Vein: 6.1. Compressibility - Fully compressible: Thrombus -None: Flow - Phasic: Augmentation - Normal: Reflux - None. OTHER FINDINGS: IMPRESSION: No evidence of deep or superficial vein thrombosis of the right lower extremity with excellent venous flow. Normal valve function noted of the right side. Normal venous flow noted in the left common femoral vein.
[2017-01-16] MEDS: Sodium Chloride 0.9% 1,000 ML IV SCH ×2 (17:07→19:49)
[2017-01-16 20:08] LABS: MONO # 0.2 K/uL (0.0-0.8)
[2017-01-16 20:10] LABS: BASO % 0.3 % (0.0-2.0); HEMATOCRIT 40.4 % (34.0-47.0); LYMPH # 0.7 K/uL (1.0-4.3); MEAN CELL VOLUME 89.5 fL (81.0-99.0); MEAN CORPUSCULAR HEMOGLOBIN 29.5 pg (27.0-31.0); MEAN CORPUSCULAR HGB CONC 32.9 g/dL (33.0-37.0); MONO % 2.7 % (0.0-10.0); RED CELL DISTRIBUTION WIDTH 13.5 % (11.5-14.5); WHITE BLOOD COUNT 7.4 K/uL (4.8-10.8)
[2017-01-16 20:17] LABS: CHLORIDE 96 mmol/L (98-107)
[2017-01-16 20:18] LABS: POTASSIUM 3.8 mmol/L (3.6-5.2); SODIUM 135 mmol/L (132-148)
[2017-01-16 20:20] LABS: ALB/GLOB RATIO 1.3 (1.0-2.1); ALKALINE PHOSPHATASE 120 U/L (38-126); AST/SGOT 26 U/L (14-36); BILIRUBIN,TOTAL 0.6 mg/dL (0.2-1.3); BLOOD UREA NITROGEN 16 mg/dL (7-17); CARBON DIOXIDE 18 mmol/L (22-30); GFR AFRICAN-AMERICAN > 60; GLUCOSE,RANDOM 239 mg/dL (65-105); TOTAL PROTEIN 7.6 g/dL (6.3-8.3)
[2017-01-16 20:21] LABS: ALT/SGPT 65 U/L (9-52); CALCIUM 9.9 mg/dl (8.6-10.4)
[2017-01-17] MEDS: MethylPREDNISolone 40 mg Vial IVP SCH ×3 (00:32→22:02)
[2017-01-17] MEDS: Albuterol-Ipratrop 3 mg / 0.5 (3 ml) UD INH SCH ×4 (01:18→20:17)
[2017-01-17 07:45] LABS: BASO % 0.1 % (0.0-2.0); HEMATOCRIT 39.1 % (34.0-47.0); LYMPH # 0.5 K/uL (1.0-4.3); LYMPH % 6.6 % (20.0-40.0); MEAN CELL VOLUME 89.9 fL (81.0-99.0); MEAN CORPUSCULAR HEMOGLOBIN 29.4 pg (27.0-31.0); MEAN CORPUSCULAR HGB CONC 32.6 g/dL (33.0-37.0); MEAN PLATELET VOLUME 9.3 fL (7.2-11.7); MONO # 0.2 K/uL (0.0-0.8); MONO % 2.9 % (0.0-10.0); PLATELET COUNT 285 K/uL (130-400); RED CELL DISTRIBUTION WIDTH 13.4 % (11.5-14.5); WHITE BLOOD COUNT 7.3 K/uL (4.8-10.8)
[2017-01-17 07:54] LABS: CHLORIDE 100 mmol/L (98-107); SODIUM 136 mmol/L (132-148)
[2017-01-17 07:56] LABS: ALB/GLOB RATIO 1.2 (1.0-2.1); AST/SGOT 27 U/L (14-36); BILIRUBIN,TOTAL 0.4 mg/dL (0.2-1.3); CARBON DIOXIDE 21 mmol/L (22-30); GFR AFRICAN-AMERICAN > 60; TOTAL PROTEIN 6.8 g/dL (6.3-8.3)
[2017-01-17 07:57] LABS: ALKALINE PHOSPHATASE 103 U/L (38-126); ALT/SGPT 55 U/L (9-52); BLOOD UREA NITROGEN 18 mg/dL (7-17); CALCIUM 9.7 mg/dl (8.6-10.4); GLUCOSE,RANDOM 278 mg/dL (65-105)
[2017-01-17 08:43] LABS: NEUTROPHIL 85 % (50-75); TOTAL CELLS COUNTED 100
[2017-01-17 08:44] LABS: LARGE PLATELETS PRESENT
[2017-01-17] MEDS ORDERED: Midazolam 2 MG/2 ML VIAL ONE (13:12)
--- NOTE | 2017-01-17 14:11 | CP.PCM.PN ---
<Jocelyne West - Last Filed: 01/17/17 14:17> Subjective - Date & Time of Evaluation Date of Evaluation: 01/17/17 Time of Evaluation: 14:10 - Subjective Subjective: Internal Medicine progress note for Dr. Hernandes Patient seen an examined at bedside. Patient states she's feeling better today than yesterday. 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 Patient denies nausea, fever, chills, vomiting, chest pain. Patient admits to shortness of breath and is anxious about the procedure. Patient was explained the procedure and patient was less anxious. Objective - Vital Signs/Intake and Output Vital Signs (last 24 hours): Temp Pulse Resp BP Pulse Ox 98.3 F 101 H 18 132/80 96 01/17/17 07:50 01/17/17 07:50 01/17/17 07:50 01/17/17 10:46 01/17/17 07:50 Intake and Output: 01/17/17 01/17/17 06:59 18:59 Intake Total 900 Balance 900 - Medications Medications: Current Medications Albuterol (Ventolin Hfa 90 Mcg/Actuation (8 G)) 1 puff INH Q6H PRN PRN Reason: Shortness of Breath Albuterol/Ipratropium (Duoneb 3 Mg/0.5 Mg (3 Ml) Ud) 3 ml INH RQ6 [facility] Last Admin: 01/17/17 13:40 Dose: Not Given Amlodipine Besylate (Norvasc) 5 mg PO DAILY [facility] Last Admin: 01/17/17 10:46 Dose: 5 mg Enalapril Maleate (Vasotec) 10 mg PO DAILY [facility] Last Admin: 01/17/17 10:46 Dose: 10 mg Famotidine (Pepcid) 20 mg PO DAILY [facility] Last Admin: 01/17/17 10:46 Dose: 20 mg Glipizide (Glucotrol) 5 mg PO DAILY [facility] Last Admin: 01/17/17 10:46 Dose: 5 mg Hydralazine HCl (Apresoline) 10 mg IVP Q6H PRN PRN Reason: Systolic Blood Pressure >160 Last Admin: 01/16/17 06:37 Dose: 10 mg Hydrochlorothiazide (Microzide) 12.5 mg PO DAILY [facility] Last Admin: 01/17/17 10:46 Dose: 12.5 mg Methylprednisolone (Solu-Medrol) 40 mg IVP Q12 [facility] Pneumococcal Polyvalent Vaccine (Pneumovax 23 Vaccine) 0.5 ml IM .ONCE ONE Stop: 01/18/17 10:01 Zolpidem Tartrate (Ambien) 5 mg PO HS [facility] Last Admin: 01/16/17 21:14 Dose: 5 mg - Labs Labs: 01/17/17 07:37 01/17/17 07:37 PT 10.7 SECONDS (9.7-12.2) 01/15/17 14:04 INR 1.0 01/15/17 14:04 APTT 32 SECONDS (21-34) 01/16/17 16:48 - Constitutional Appears: Non-toxic - Head Exam Head Exam: NORMAL INSPECTION - Eye Exam Eye Exam: EOMI, Normal appearance - ENT Exam ENT Exam: Mucous Membranes Moist - Neck Exam Neck Exam: Full ROM - Respiratory Exam Respiratory Exam: Clear to Ausculation Bilateral, NORMAL BREATHING PATTERN. absent: Accessory Muscle Use, Respiratory Distress - Cardiovascular Exam Cardiovascular Exam: Tachycardia, REGULAR RHYTHM, +S1, +S2 - GI/Abdominal Exam GI & Abdominal Exam: Soft. absent: Tenderness - Exam Exam: NORMAL INSPECTION - Extremities Exam Extremities Exam: Full ROM, Normal Inspection. absent: Pedal Edema - Neurological Exam Neurological Exam: Alert, Awake, Oriented x3 - Psychiatric Exam Psychiatric exam: Normal Affect, Normal Mood - Skin Skin Exam: Dry, Intact, Normal Color, Warm Assessment and Plan - Assessment and Plan (Free Text) Assessment: Shortness of breath CT chest: no PE Doppler r/o DVT, f/u final read Pulmonology consult: Dr. 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 Tesfaye RETANA, Q6H x 3 EKG mucomyst 20% 4ml Q12H ASA 81mg POQD per Cardiology Norvasc 5mg PO x 1 day Diabetes Accucheck QACHS A1c in AM, Lipid Panel hold glipizide HTN benzapril/hydrochlorothiazide equivalent Hydralazine 10mg IVQ6H PRN SBP>160 Norvasc Asthma, mild intermittent, dyspnea albuterol 3ml Q6HR PRN Solumedrol 40mg IV Q12H Allergies trees, weather changes h/o asthma; mild exacerbation 01/16: CT chest showed: suboptimal opacification of pulmonary arteries <190 HU, no visible intraluminal filling defects to suggest central pulmonary embolism Tobacco use history stopped 15 years ago counseled to stop Depression, Alcohol abuse counseled to stop drinking declined psychiatry help during stay at this time PT OT evaluation Headache Motrin 400mg stat dose Prophylaxis Pepcid 20 mg IV Q12 Received Lovenox 100mg SQx1 Continue ASA and DVT/GI prophylaxis 01/16 per Cardio Cath procedure today. Lungs clear per Pulmonology Consult: Dr. Parra <Sheri Hernandes V - Last Filed: 01/18/17 00:03> Objective - Vital Signs/Intake and Output Vital Signs (last 24 hours): Temp Pulse Resp BP Pulse Ox 98.1 F 106 H 20 124/74 96 01/17/17 23:52 01/17/17 23:52 01/17/17 23:52 01/17/17 23:52 01/17/17 23:52 Intake and Output: 01/17/17 01/18/17 18:59 06:59 Intake Total 220 Balance 220 - Medications Medications: Current Medications Acetaminophen (Tylenol 325mg Tab) 650 mg PO Q6 PRN PRN Reason: Pain, Mild (1-3) Albuterol (Ventolin Hfa 90 Mcg/Actuation (8 G)) 1 puff INH Q6H PRN PRN Reason: Shortness of Breath Albuterol/Ipratropium (Duoneb 3 Mg/0.5 Mg (3 Ml) Ud) 3 ml INH RQ6 [facility] Last Admin: 01/17/17 20:17 Dose: 3 ml Amlodipine Besylate (Norvasc) 5 mg PO DAILY [facility] Last Admin: 01/17/17 10:46 Dose: 5 mg Aspirin (Ecotrin) 81 mg PO DAILY [facility] Last Admin: 01/17/17 15:20 Dose: 81 mg Dextrose (Dextrose 50% Inj) 0 ml IV STAT PRN; Protocol PRN Reason: Hyglycemia Protocol Dextrose (Glutose 15) 0 gm PO ONCE PRN; Protocol PRN Reason: Hypoglycemia Protocol Enalapril Maleate (Vasotec) 10 mg PO DAILY [facility] Last Admin: 01/17/17 10:46 Dose: 10 mg Famotidine (Pepcid) 20 mg PO DAILY [facility] Last Admin: 01/17/17 10:46 Dose: 20 mg Glipizide (Glucotrol) 5 mg PO DAILY [facility] Last Admin: 01/17/17 10:46 Dose: 5 mg Glucagon (Glucagen Diagnostic Kit) 0 mg IM STAT PRN; Protocol PRN Reason: Hypoglycemia Protocol Hydralazine HCl (Apresoline) 10 mg IVP Q6H PRN PRN Reason: Systolic Blood Pressure >160 Last Admin: 01/16/17 06:37 Dose: 10 mg Hydrochlorothiazide (Microzide) 12.5 mg PO DAILY [facility] Last Admin: 01/17/17 10:46 Dose: 12.5 mg Sodium Chloride (Sodium Chloride 0.45%) 1,000 mls @ 70 mls/hr IV .[id number] [facility] Stop: 01/18/17 03:00 Last Admin: 01/17/17 21:31 Dose: Not Given Dextrose (Dextrose 5% In Water 1000 Ml) 1,000 mls @ 0 mls/hr IV .Q0M PRN; Protocol; Per Protocol PRN Reason: Hypoglycemia Protocol Methylprednisolone (Solu-Medrol) 40 mg IVP Q12 [facility] Last Admin: 01/17/17 22:02 Dose: 40 mg Morphine Sulfate (Morphine) 1 mg IVP Q4 PRN PRN Reason: Pain, moderate (4-7) Last Admin: 01/17/17 17:20 Dose: 1 mg Pneumococcal Polyvalent Vaccine (Pneumovax 23 Vaccine) 0.5 ml IM .ONCE ONE Stop: 01/18/17 10:01 Zolpidem Tartrate (Ambien) 5 mg PO HS [facility] Last Admin: 01/17/17 22:01 Dose: 5 mg - Labs Labs: 01/17/17 07:37 01/17/17 07:37 PT 10.7 SECONDS (9.7-12.2) 01/15/17 14:04 INR 1.0 01/15/17 14:04 APTT 32 SECONDS (21-34) 01/16/17 16:48 Attending/Attestation - Attestation I have personally seen and examined this patient.: Yes I have fully participated in the care of the patient.: Yes I have reviewed all pertinent clinical information, including history, physical exam and plan: Yes Notes (Text): Patient seen, examined, and case discussed with day-time resident. Patient seen prior to cardiac cath. patient reports she feels anxious. I am able to lay patient flat in her and she is able to tolerate it. Lung exam is clear. Resident spoke with pulmonary lungs also sound clear. Discussed with patient at bedside, patient is recommended for sleep studies. Patient underwent cardiac cath today-->nonobstructive coronaries and normal EF Titrated down the Iv steroids. Assessment/Plan 1) Shortness of breath * CT chest (01/15/17): suboptimal opacification of pulmonary arteries due to limiting evaluation for PE. No visible intraluminal filling defects within the central pulmonary arteries to suggest central PE. No focal consolidation. No pleural effusion. No pneumothorax. Dense coronary artery calcifications. Mildly heterogeneous appearance of the included portions inferior thyroid gland. Limited visualized portions of the upper abdomen demonstrates bilateral low density renal lesions, likely cysts. Hypotenuattion of liver compute stent with hepatic steatosis * Doppler r/o DVT, f/u final read * d-dimer:negative * History of Asthma-->mild exacerbation; given Solumedrol 40mg IVP X1 on admission 2) h/o asthma; mild exacerbation * Pulmonary, Dr. Parra on consult * ABG ordered * Given Solumedrol 40mg IV X1 on admission * albuterol 3ml Q6HR PRN * Decrease to Solumedrol 40mg IV Q12H * Triggers: Allergies trees, weather changes * CT chest (01/15/17): suboptimal opacification of pulmonary arteries due to limiting evaluation for PE. No visible intraluminal filling defects within the central pulmonary arteries to suggest central PE. No focal consolidation. No pleural effusion. No pneumothorax. Dense coronary artery calcifications. Mildly heterogeneous appearance of the included portions inferior thyroid gland. Limited visualized portions of the upper abdomen demonstrates bilateral low density renal lesions, likely cysts. Hypotenuattion of liver compute stent with hepatic steatosis 3) Abnormal stress test * Cardiology Consult: Dr. Carlin help appreciated * AMZIN X3: negative * Prior to cath, mucomyst 20% 4ml Q12H and NS 50cc/hr * ASA 81mg PO daily * Cardiac cath today-->nonobstructive coronaries and normal EF 4) Diabetes * Accucheck QACHS * A1c:9.7 uncontrolled Lipid Panel: T, chol: 175, LDL:74 HDL:76 * will restart tomorrow glipizide on admission * Hypoglycemic protocol in place 5) Hypertension * benzapril/hydrochlorothiazide equivalent-->benzapril not available on hospital formulary-->start on hospital equivalent: Enalapril 10mg PO daily and HCTZ 12.5mg PO daily * Hydralazine 10mg IVQ6H PRN SBP>160 * Norvasc 5mg PO daily 6) Tobacco use history * stopped 15 years ago * Tobacco cessation provided 7) Depression, Alcohol abuse * Triggered by brother's suicide * declined psychiatry help during stay at this time * Ambien 5mg PO qHS (takes 10mg PO qhs for insomnia at [facility]) 8) Prophylactic care * PT: home with services * Pepcid 20 mg IV Q12 * Heparin dvt started for tomorrow Disposition: Pending cardiac and pulm clearance, patient will possible discharge tomorrow.
[2017-01-17] MEDS ORDERED: Sodium Chloride 0.45% 1,000 ML IV SCH (15:00)
[2017-01-17] MEDS ORDERED: Glucagon Recombinant 1 mg Inj IM PRN (18:19)
[2017-01-17] MEDS ORDERED: Dextrose 50% SYRINGE Inj (50 ml) IV PRN (18:19)
[2017-01-17 18:46] VITALS: RESP 20
--- NOTE | 2017-01-17 21:53 | CP.PCM.PN ---
Subjective - Date & Time of Evaluation Date of Evaluation: 01/17/17 Time of Evaluation: 21:53 Objective - Vital Signs/Intake and Output Vital Signs (last 24 hours): Temp Pulse Resp BP Pulse Ox 98.0 F 114 H 20 133/77 95 01/17/17 16:00 01/17/17 18:00 01/17/17 16:00 01/17/17 16:00 01/17/17 16:00 Intake and Output: 01/17/17 01/18/17 18:59 06:59 Intake Total 220 Balance 220 - Medications Medications: Current Medications Acetaminophen (Tylenol 325mg Tab) 650 mg PO Q6 PRN PRN Reason: Pain, Mild (1-3) Albuterol (Ventolin Hfa 90 Mcg/Actuation (8 G)) 1 puff INH Q6H PRN PRN Reason: Shortness of Breath Albuterol/Ipratropium (Duoneb 3 Mg/0.5 Mg (3 Ml) Ud) 3 ml INH RQ6 [facility] Last Admin: 01/17/17 20:17 Dose: 3 ml Amlodipine Besylate (Norvasc) 5 mg PO DAILY [facility] Last Admin: 01/17/17 10:46 Dose: 5 mg Aspirin (Ecotrin) 81 mg PO DAILY [facility] Last Admin: 01/17/17 15:20 Dose: 81 mg Dextrose (Dextrose 50% Inj) 0 ml IV STAT PRN; Protocol PRN Reason: Hyglycemia Protocol Dextrose (Glutose 15) 0 gm PO ONCE PRN; Protocol PRN Reason: Hypoglycemia Protocol Enalapril Maleate (Vasotec) 10 mg PO DAILY [facility] Last Admin: 01/17/17 10:46 Dose: 10 mg Famotidine (Pepcid) 20 mg PO DAILY [facility] Last Admin: 01/17/17 10:46 Dose: 20 mg Glipizide (Glucotrol) 5 mg PO DAILY [facility] Last Admin: 01/17/17 10:46 Dose: 5 mg Glucagon (Glucagen Diagnostic Kit) 0 mg IM STAT PRN; Protocol PRN Reason: Hypoglycemia Protocol Hydralazine HCl (Apresoline) 10 mg IVP Q6H PRN PRN Reason: Systolic Blood Pressure >160 Last Admin: 01/16/17 06:37 Dose: 10 mg Hydrochlorothiazide (Microzide) 12.5 mg PO DAILY [facility] Last Admin: 01/17/17 10:46 Dose: 12.5 mg Sodium Chloride (Sodium Chloride 0.45%) 1,000 mls @ 70 mls/hr IV .[id number] [facility] Stop: 01/18/17 03:00 Last Admin: 01/17/17 21:31 Dose: Not Given Dextrose (Dextrose 5% In Water 1000 Ml) 1,000 mls @ 0 mls/hr IV .Q0M PRN; Protocol; Per Protocol PRN Reason: Hypoglycemia Protocol Methylprednisolone (Solu-Medrol) 40 mg IVP Q12 [facility] Morphine Sulfate (Morphine) 1 mg IVP Q4 PRN PRN Reason: Pain, moderate (4-7) Last Admin: 01/17/17 17:20 Dose: 1 mg Pneumococcal Polyvalent Vaccine (Pneumovax 23 Vaccine) 0.5 ml IM .ONCE ONE Stop: 01/18/17 10:01 Zolpidem Tartrate (Ambien) 5 mg PO HS [facility] Last Admin: 01/16/17 21:14 Dose: 5 mg - Labs Labs: 01/17/17 07:37 01/17/17 07:37 PT 10.7 SECONDS (9.7-12.2) 01/15/17 14:04 INR 1.0 01/15/17 14:04 APTT 32 SECONDS (21-34) 01/16/17 16:48
--- NOTE | 2017-01-17 21:53 | CP.PCM.CON ---
Past Patient History - Past Medical History & Family History Past Medical History?: Yes - Past Social History Smoking Status: Former Smoker - CARDIAC Hx Cardiac Disorders: Yes Hx Hypertension: Yes - PULMONARY Hx Respiratory Disorders: Yes Hx Asthma: Yes - NEUROLOGICAL Hx Neurological Disorder: No - HEENT Hx HEENT Problems: No - RENAL Hx Chronic Kidney Disease: No - ENDOCRINE/METABOLIC Hx Diabetes Mellitus Type 2: Yes - HEMATOLOGICAL/ONCOLOGICAL Hx Blood Disorders: No - INTEGUMENTARY Hx Dermatological Problems: No - MUSCULOSKELETAL/RHEUMATOLOGICAL Hx Arthritis: Yes (OA, Gout,) - GASTROINTESTINAL Hx Gastrointestinal Disorders: No - GENITOURINARY/GYNECOLOGICAL Hx Genitourinary Disorders: No - PSYCHIATRIC Hx Psychophysiologic Disorder: Yes Hx Depression: Yes Hx Substance Use: Yes - SURGICAL HISTORY Hx Surgeries: Yes Other/Comment: PERONEAL TENDON GROOVING RT ANKLE JAN 2014 - ANESTHESIA Hx Anesthesia: Yes Hx Anesthesia Reactions: No Hx Malignant Hyperthermia: No Has any member of the family had a problem w/ anesthesia?: No Meds Allergies/Adverse Reactions: Allergies Allergy/AdvReac Type Severity Reaction Status Date / Time phenobarbital Allergy Verified 01/15/17 13:39 - Medications Medications: Current Medications Acetaminophen (Tylenol 325mg Tab) 650 mg PO Q6 PRN PRN Reason: Pain, Mild (1-3) Albuterol (Ventolin Hfa 90 Mcg/Actuation (8 G)) 1 puff INH Q6H PRN PRN Reason: Shortness of Breath Albuterol/Ipratropium (Duoneb 3 Mg/0.5 Mg (3 Ml) Ud) 3 ml INH RQ6 [facility] Last Admin: 01/17/17 20:17 Dose: 3 ml Amlodipine Besylate (Norvasc) 5 mg PO DAILY [facility] Last Admin: 01/17/17 10:46 Dose: 5 mg Aspirin (Ecotrin) 81 mg PO DAILY [facility] Last Admin: 01/17/17 15:20 Dose: 81 mg Dextrose (Dextrose 50% Inj) 0 ml IV STAT PRN; Protocol PRN Reason: Hyglycemia Protocol Dextrose (Glutose 15) 0 gm PO ONCE PRN; Protocol PRN Reason: Hypoglycemia Protocol Enalapril Maleate (Vasotec) 10 mg PO DAILY [facility] Last Admin: 01/17/17 10:46 Dose: 10 mg Famotidine (Pepcid) 20 mg PO DAILY [facility] Last Admin: 01/17/17 10:46 Dose: 20 mg Glipizide (Glucotrol) 5 mg PO DAILY [facility] Last Admin: 01/17/17 10:46 Dose: 5 mg Glucagon (Glucagen Diagnostic Kit) 0 mg IM STAT PRN; Protocol PRN Reason: Hypoglycemia Protocol Hydralazine HCl (Apresoline) 10 mg IVP Q6H PRN PRN Reason: Systolic Blood Pressure >160 Last Admin: 01/16/17 06:37 Dose: 10 mg Hydrochlorothiazide (Microzide) 12.5 mg PO DAILY [facility] Last Admin: 01/17/17 10:46 Dose: 12.5 mg Sodium Chloride (Sodium Chloride 0.45%) 1,000 mls @ 70 mls/hr IV .[id number] [facility] Stop: 01/18/17 03:00 Last Admin: 01/17/17 21:31 Dose: Not Given Dextrose (Dextrose 5% In Water 1000 Ml) 1,000 mls @ 0 mls/hr IV .Q0M PRN; Protocol; Per Protocol PRN Reason: Hypoglycemia Protocol Methylprednisolone (Solu-Medrol) 40 mg IVP Q12 [facility] Morphine Sulfate (Morphine) 1 mg IVP Q4 PRN PRN Reason: Pain, moderate (4-7) Last Admin: 01/17/17 17:20 Dose: 1 mg Pneumococcal Polyvalent Vaccine (Pneumovax 23 Vaccine) 0.5 ml IM .ONCE ONE Stop: 01/18/17 10:01 Zolpidem Tartrate (Ambien) 5 mg PO HS [facility] Last Admin: 01/16/17 21:14 Dose: 5 mg Results - Vital Signs Recent Vital Signs: Last Vital Signs Temp 98.0 F 01/17/17 16:00 Pulse 114 H 01/17/17 18:00 Resp 20 01/17/17 16:00 BP 133/77 01/17/17 16:00 Pulse Ox 95 01/17/17 16:00 - Labs Result Diagrams: 01/17/17 07:37 01/17/17 07:37 Labs: Laboratory Results - last 24 hr 01/16/17 01/16/17 01/16/17 11:24 11:28 23:32 WBC RBC Hgb Hct MCV MCH MCHC RDW Plt Count MPV Neut % (Auto) Lymph % (Auto) Banner % (Auto) Eos % (Auto) Baso % (Auto) Neut # Lymph # Banner # Eos # Baso # Neutrophils % (Manual) Band Neutrophils % Lymphocytes % (Manual) Monocytes % (Manual) Platelet Estimate Large Platelets RBC Morphology Sodium Potassium Chloride Carbon Dioxide Anion Gap BUN Creatinine Est GFR ( Amer) Est GFR (Non-Af Amer) POC Glucose (mg/dL) 286 H Random Glucose Calcium Total Bilirubin AST ALT Alkaline Phosphatase Total Protein Albumin Globulin Albumin/Globulin Ratio Ur L.pneumophila Ag Negative Cancelled 01/17/17 01/17/17 01/17/17 06:29 07:37 07:37 WBC 7.3 RBC 4.35 Hgb 12.8 Hct 39.1 MCV 89.9 MCH 29.4 MCHC 32.6 L RDW 13.4 Plt Count 285 MPV 9.3 Neut % (Auto) 90.4 H Lymph % (Auto) 6.6 L Banner % (Auto) 2.9 Eos % (Auto) 0.0 Baso % (Auto) 0.1 Neut # 6.6 Lymph # 0.5 L Banner # 0.2 Eos # 0.0 Baso # 0.0 Neutrophils % (Manual) 85 H Band Neutrophils % 3 H Lymphocytes % (Manual) 8 L Monocytes % (Manual) 4 Platelet Estimate Normal Large Platelets Present RBC Morphology Normal Sodium 136 Potassium 4.0 Chloride 100 Carbon Dioxide 21 L Anion Gap 19 BUN 18 H Creatinine 0.6 L Est GFR ( Amer) > 60 Est GFR (Non-Af Amer) > 60 POC Glucose (mg/dL) 302 H Random Glucose 278 H Calcium 9.7 Total Bilirubin 0.4 AST 27 ALT 55 H Alkaline Phosphatase 103 Total Protein 6.8 Albumin 3.8 Globulin 3.1 Albumin/Globulin Ratio 1.2 Ur L.pneumophila Ag 01/17/17 01/17/17 01/17/17 12:05 16:14 21:23 WBC RBC Hgb Hct MCV MCH MCHC RDW Plt Count MPV Neut % (Auto) Lymph % (Auto) Banner % (Auto) Eos % (Auto) Baso % (Auto) Neut # Lymph # Banner # Eos # Baso # Neutrophils % (Manual) Band Neutrophils % Lymphocytes % (Manual) Monocytes % (Manual) Platelet Estimate Large Platelets RBC Morphology Sodium Potassium Chloride Carbon Dioxide Anion Gap BUN Creatinine Est GFR ( Amer) Est GFR (Non-Af Amer) POC Glucose (mg/dL) 295 H 262 H 210 H Random Glucose Calcium Total Bilirubin AST ALT Alkaline Phosphatase Total Protein Albumin Globulin Albumin/Globulin Ratio Ur L.pneumophila Ag
--- NOTE | 2017-01-17 23:11 | CP.PCM.PN ---
Subjective - Date & Time of Evaluation Date of Evaluation: 01/17/17 Time of Evaluation: 16:00 - Subjective Subjective: Patient s/p Cath Non Obstructive Coronaries Normal EF Objective - Vital Signs/Intake and Output Vital Signs (last 24 hours): Temp Pulse Resp BP Pulse Ox 98.0 F 114 H 20 133/77 95 01/17/17 16:00 01/17/17 18:00 01/17/17 16:00 01/17/17 16:00 01/17/17 16:00 Intake and Output: 01/17/17 01/18/17 18:59 06:59 Intake Total 220 Balance 220 - Medications Medications: Current Medications Acetaminophen (Tylenol 325mg Tab) 650 mg PO Q6 PRN PRN Reason: Pain, Mild (1-3) Albuterol (Ventolin Hfa 90 Mcg/Actuation (8 G)) 1 puff INH Q6H PRN PRN Reason: Shortness of Breath Albuterol/Ipratropium (Duoneb 3 Mg/0.5 Mg (3 Ml) Ud) 3 ml INH RQ6 [facility] Last Admin: 01/17/17 20:17 Dose: 3 ml Amlodipine Besylate (Norvasc) 5 mg PO DAILY [facility] Last Admin: 01/17/17 10:46 Dose: 5 mg Aspirin (Ecotrin) 81 mg PO DAILY [facility] Last Admin: 01/17/17 15:20 Dose: 81 mg Dextrose (Dextrose 50% Inj) 0 ml IV STAT PRN; Protocol PRN Reason: Hyglycemia Protocol Dextrose (Glutose 15) 0 gm PO ONCE PRN; Protocol PRN Reason: Hypoglycemia Protocol Enalapril Maleate (Vasotec) 10 mg PO DAILY [facility] Last Admin: 01/17/17 10:46 Dose: 10 mg Famotidine (Pepcid) 20 mg PO DAILY [facility] Last Admin: 01/17/17 10:46 Dose: 20 mg Glipizide (Glucotrol) 5 mg PO DAILY [facility] Last Admin: 01/17/17 10:46 Dose: 5 mg Glucagon (Glucagen Diagnostic Kit) 0 mg IM STAT PRN; Protocol PRN Reason: Hypoglycemia Protocol Hydralazine HCl (Apresoline) 10 mg IVP Q6H PRN PRN Reason: Systolic Blood Pressure >160 Last Admin: 01/16/17 06:37 Dose: 10 mg Hydrochlorothiazide (Microzide) 12.5 mg PO DAILY [facility] Last Admin: 01/17/17 10:46 Dose: 12.5 mg Sodium Chloride (Sodium Chloride 0.45%) 1,000 mls @ 70 mls/hr IV .[id number] [facility] Stop: 01/18/17 03:00 Last Admin: 01/17/17 21:31 Dose: Not Given Dextrose (Dextrose 5% In Water 1000 Ml) 1,000 mls @ 0 mls/hr IV .Q0M PRN; Protocol; Per Protocol PRN Reason: Hypoglycemia Protocol Methylprednisolone (Solu-Medrol) 40 mg IVP Q12 [facility] Last Admin: 01/17/17 22:02 Dose: 40 mg Morphine Sulfate (Morphine) 1 mg IVP Q4 PRN PRN Reason: Pain, moderate (4-7) Last Admin: 01/17/17 17:20 Dose: 1 mg Pneumococcal Polyvalent Vaccine (Pneumovax 23 Vaccine) 0.5 ml IM .ONCE ONE Stop: 01/18/17 10:01 Zolpidem Tartrate (Ambien) 5 mg PO HS [facility] Last Admin: 01/17/17 22:01 Dose: 5 mg - Labs Labs: 01/17/17 07:37 01/17/17 07:37 PT 10.7 SECONDS (9.7-12.2) 01/15/17 14:04 INR 1.0 01/15/17 14:04 APTT 32 SECONDS (21-34) 01/16/17 16:48
[2017-01-18] MEDS: Albuterol-Ipratrop 3 mg / 0.5 (3 ml) UD INH SCH (01:40)
[2017-01-18 08:36] LABS: CHLORIDE 96 mmol/L (98-107); POTASSIUM 4.4 mmol/L (3.6-5.2); SODIUM 133 mmol/L (132-148)
[2017-01-18 08:37] LABS: BASO % 0.3 % (0.0-2.0); HEMATOCRIT 38.8 % (34.0-47.0); LYMPH # 0.6 K/uL (1.0-4.3); LYMPH % 6.6 % (20.0-40.0); MEAN PLATELET VOLUME 9.6 fL (7.2-11.7); MONO # 0.2 K/uL (0.0-0.8); MONO % 2.7 % (0.0-10.0); PLATELET COUNT 278 K/uL (130-400); RED CELL DISTRIBUTION WIDTH 13.7 % (11.5-14.5); WHITE BLOOD COUNT 8.9 K/uL (4.8-10.8)
[2017-01-18 08:38] LABS: GFR AFRICAN-AMERICAN > 60
[2017-01-18 08:39] LABS: ALB/GLOB RATIO 1.4 (1.0-2.1); ALKALINE PHOSPHATASE 90 U/L (38-126); ALT/SGPT 47 U/L (9-52); AST/SGOT 28 U/L (14-36); BILIRUBIN,TOTAL 0.5 mg/dL (0.2-1.3); BLOOD UREA NITROGEN 27 mg/dL (7-17); CALCIUM 8.9 mg/dl (8.6-10.4); CARBON DIOXIDE 19 mmol/L (22-30); GLUCOSE,RANDOM 260 mg/dL (65-105); TOTAL PROTEIN 6.8 g/dL (6.3-8.3)
--- NOTE | 2017-01-18 08:46 | CP.PCM.DIS ---
<HernandoJojo valverde - Last Filed: 01/18/17 09:44> Provider - Provider Date of Admission: 01/15/17 17:43 Attending physician: Sheri Hernandes DO Time Spent in preparation of Discharge (in minutes): 55 Hospital Course - Lab Results Lab Results: Most Recent Lab Values WBC 8.9 K/uL (4.8-10.8) 01/18/17 08:05 RBC 4.26 Mil/uL (3.80-5.20) 01/18/17 08:05 Hgb 12.8 g/dL (11.0-16.0) 01/18/17 08:05 Hct 38.8 % (34.0-47.0) 01/18/17 08:05 MCV 91.0 fL (81.0-99.0) 01/18/17 08:05 MCH 30.0 pg (27.0-31.0) 01/18/17 08:05 MCHC 33.0 g/dL (33.0-37.0) 01/18/17 08:05 RDW 13.7 % (11.5-14.5) 01/18/17 08:05 Plt Count 278 K/uL (130-400) 01/18/17 08:05 MPV 9.6 fL (7.2-11.7) 01/18/17 08:05 Neut % (Auto) 90.4 % (50.0-75.0) H 01/18/17 08:05 Lymph % (Auto) 6.6 % (20.0-40.0) L 01/18/17 08:05 [place] % (Auto) 2.7 % (0.0-10.0) 01/18/17 08:05 Eos % (Auto) 0.0 % (0.0-4.0) 01/18/17 08:05 Baso % (Auto) 0.3 % (0.0-2.0) 01/18/17 08:05 Neut # 8.0 K/uL (1.8-7.0) H 01/18/17 08:05 Lymph # 0.6 K/uL (1.0-4.3) L 01/18/17 08:05 [place] # 0.2 K/uL (0.0-0.8) 01/18/17 08:05 Eos # 0.0 K/uL (0.0-0.7) 01/18/17 08:05 Baso # 0.0 K/uL (0.0-0.2) 01/18/17 08:05 Neutrophils % (Manual) 85 % (50-75) H 01/17/17 07:37 Band Neutrophils % 3 % (0-2) H 01/17/17 07:37 Lymphocytes % (Manual) 8 % (20-40) L 01/17/17 07:37 Monocytes % (Manual) 4 % (0-10) 01/17/17 07:37 Platelet Estimate Normal (NORMAL) 01/17/17 07:37 Large Platelets Present 01/17/17 07:37 RBC Morphology Normal 01/17/17 07:37 PT 10.7 SECONDS (9.7-12.2) 01/15/17 14:04 INR 1.0 01/15/17 14:04 APTT 32 SECONDS (21-34) 01/16/17 16:48 D-Dimer, Quantitative < 200 ng/mlDDU (0-243) 01/15/17 14:04 Puncture Site Rr 01/16/17 09:13 pCO2 28 mm/Hg (35-45) L 01/16/17 09:13 pO2 88 mm/Hg (80-100) 01/16/17 09:13 HCO3 23.4 mmol/L (21-28) 01/16/17 09:13 ABG pH 7.47 (7.35-7.45) H 01/16/17 09:13 ABG Total CO2 21.3 mmol/L (22-28) L 01/16/17 09:13 ABG O2 Saturation 98.9 % (95-98) H 01/16/17 09:13 ABG Base Excess -2.0 mmol/L (-2.0-3.0) 01/16/17 09:13 Lisandro Test Pos 01/16/17 09:13 ABG Potassium 3.3 mmol/L (3.6-5.2) L 01/16/17 09:13 A-a O2 Difference 91.0 mm/Hg 01/16/17 09:13 Respiratory Index 1.0 01/16/17 09:13 Sodium 138.0 mmol/l (132-148) 01/16/17 09:13 Chloride 107.0 mmol/L (98-107) 01/16/17 09:13 Glucose 236 mg/dl (65-105) H 01/16/17 09:13 Lactate 2.1 mmol/L (0.7-2.1) 01/16/17 09:13 Liter Flow 3.0 01/16/17 09:13 FiO2 30.0 % 01/16/17 09:13 Sodium 133 mmol/L (132-148) 01/18/17 08:05 Potassium 4.4 mmol/L (3.6-5.2) 01/18/17 08:05 Chloride 96 mmol/L (98-107) L 01/18/17 08:05 Carbon Dioxide 19 mmol/L (22-30) L 01/18/17 08:05 Anion Gap 22 (10-20) H 01/18/17 08:05 BUN 27 mg/dL (7-17) H 01/18/17 08:05 Creatinine 0.7 MG/DL (0.7-1.2) 01/18/17 08:05 Est GFR ( Amer) > 60 01/18/17 08:05 Est GFR (Non-Af Amer) > 60 01/18/17 08:05 POC Glucose (mg/dL) 267 mg/dL (65-110) H 01/18/17 06:33 Random Glucose 260 mg/dL (65-105) H 01/18/17 08:05 Hemoglobin A1c 9.7 % (4.2-6.5) H 01/16/17 08:17 Calcium 8.9 mg/dl (8.6-10.4) 01/18/17 08:05 Total Bilirubin 0.5 mg/dL (0.2-1.3) 01/18/17 08:05 AST 28 U/L (14-36) 01/18/17 08:05 ALT 47 U/L (9-52) 01/18/17 08:05 Alkaline Phosphatase 90 U/L (38-126) 01/18/17 08:05 Total Creatine Kinase 53 U/L (30-135) 01/16/17 02:20 CK-MB (Mass) 0.38 ng/mL (0.0-3.38) 01/16/17 02:20 Troponin I < 0.0120 ng/mL (0.00-0.120) 01/15/17 14:06 Troponin I, Quant < 0.0120 ng/mL (0.00-0.120) 01/16/17 02:20 NT-Pro-B Natriuret Pep 58.5 pg/mL (0-900) 01/15/17 14:06 Total Protein 6.8 g/dL (6.3-8.3) 01/18/17 08:05 Albumin 3.9 g/dL (3.5-5.0) 01/18/17 08:05 Globulin 2.9 gm/dL (2.2-3.9) 01/18/17 08:05 Albumin/Globulin Ratio 1.4 (1.0-2.1) 01/18/17 08:05 Triglycerides 181 mg/dL (0-149) H 01/16/17 13:10 Cholesterol 175 mg/dL (0-199) 01/16/17 13:10 LDL Cholesterol Direct 74 mg/dL (0-129) 01/16/17 13:10 HDL Cholesterol 76 mg/dL (30-70) H 01/16/17 13:10 Arterial Blood Potassium 3.3 mmol/L (3.6-5.2) L 01/16/17 09:13 Ur L.pneumophila Ag Cancelled 01/16/17 11:28 Mycoplasma pneumon IgM Negative (NEGATIVE) 01/16/17 11:28 - Hospital Course Hospital Course: Upon Admission: Patient presents with shortness of breath which began in the morning and has lasted since arrival to the ED. Patient states she was scheduled for labor conciliator with Dr. Carlin. Patient was sent from the office due to her shortness of breath. Patient denies chest pain, dizziness. Patient admits to phlegm production. Patient states phlegm is a chronic thing. Patient states she's short of breath after walking usually. Patient states she had an echo on 01/01, which found some diastolic dysfunction. Patient states her llama farmer told her that she has something in the front of her heart. Patient was worked up for right leg swelling in the past post right ankle surgery. No findings. Patient states she had asthma as a child, which stopped when she was in her 20s. PMH: HTN, DM, asthma. Surgical history: Right ankle surgery (2013) Social Hx: Patient is a former smoker [id number] (quit 15 years ago). Patient drinks about 5 shots of vodka a day due to the fact that her son committed suicide, patient states she has God to help her through the stressors in life. FHx: father had COPD, uncle had [place] Throughout Hospital Course: Patient was admitted for shortness of breath. She is to follow up with her Road Traffic Controller, Dr. Kobe Knight in 1 week. She will need to follow up with Dr. Rosales in 1-2 weeks, to have a sleep study arranged for her. Assessment/Plan 1) Shortness of breath * CT chest (01/15/17): suboptimal opacification of pulmonary arteries due to limiting evaluation for PE. No visible intraluminal filling defects within the central pulmonary arteries to suggest central PE. No focal consolidation. No pleural effusion. No pneumothorax. Dense coronary artery calcifications. Mildly heterogeneous appearance of the included portions inferior thyroid gland. Limited visualized portions of the upper abdomen demonstrates bilateral low density renal lesions, likely cysts. Hypotenuattion of liver compute stent with hepatic steatosis * Doppler r/o DVT, f/u final read * d-dimer:negative * History of Asthma-->mild exacerbation; given Solumedrol 40mg IVP X1 on admission 2) h/o asthma; mild exacerbation * Pulmonary, Dr. Rosales on consult * ABG ordered * Given Solumedrol 40mg IV X1 on admission * albuterol 3ml Q6HR PRN * Decrease to Solumedrol 40mg IV Q12H * Triggers: Allergies trees, weather changes * CT chest (01/15/17): suboptimal opacification of pulmonary arteries due to limiting evaluation for PE. No visible intraluminal filling defects within the central pulmonary arteries to suggest central PE. No focal consolidation. No pleural effusion. No pneumothorax. Dense coronary artery calcifications. Mildly heterogeneous appearance of the included portions inferior thyroid gland. Limited visualized portions of the upper abdomen demonstrates bilateral low density renal lesions, likely cysts. Hypotenuattion of liver compute stent with hepatic steatosis 3) Abnormal stress test * Cardiology Consult: Dr. Carlin help appreciated * MAZIN X3: negative * Prior to cath, mucomyst 20% 4ml Q12H and NS 50cc/hr * ASA 81mg PO daily * Cardiac cath today-->nonobstructive coronaries and normal EF 4) Diabetes * Accucheck QACHS * A1c:9.7 uncontrolled Lipid Panel: T, chol: 175, LDL:74 HDL:76 * will restart tomorrow glipizide on admission * Hypoglycemic protocol in place 5) Hypertension * benzapril/hydrochlorothiazide equivalent-->benzapril not available on hospital formulary-->start on hospital equivalent: Enalapril 10mg PO daily and HCTZ 12.5mg PO daily * Hydralazine 10mg IVQ6H PRN SBP>160 * Norvasc 5mg PO daily 6) Tobacco use history * stopped 15 years ago * Tobacco cessation provided 7) Depression, Alcohol abuse * Triggered by brother's suicide * declined psychiatry help during stay at this time * Ambien 5mg PO qHS (takes 10mg PO qhs for insomnia at [facility]) This is a brief summary of the patient's hospital course. Discharge Exam - Head Exam Head Exam: NORMAL INSPECTION - Additional Findings Additional findings: - Constitutional Appears: Non-toxic - Head Exam Head Exam: NORMAL INSPECTION - Eye Exam Eye Exam: EOMI, Normal appearance - ENT Exam ENT Exam: Mucous Membranes Moist - Neck Exam Neck Exam: Full ROM - Respiratory Exam Respiratory Exam: Clear to Ausculation Bilateral, NORMAL BREATHING PATTERN. absent: Accessory Muscle Use, Respiratory Distress - Cardiovascular Exam Cardiovascular Exam: Tachycardia, REGULAR RHYTHM, +S1, +S2 - GI/Abdominal Exam GI & Abdominal Exam: Soft. absent: Tenderness - Exam Exam: NORMAL INSPECTION - Extremities Exam Extremities Exam: Full ROM, Normal Inspection. absent: Pedal Edema - Neurological Exam Neurological Exam: Alert, Awake, Oriented x3 - Psychiatric Exam Psychiatric exam: Normal Affect, Normal Mood - Skin Skin Exam: Dry, Intact, Normal Color, Warm Discharge Plan - Discharge Medications Prescriptions: RX: Aspirin [Ecotrin] 81 mg PO DAILY #30 tabec RX: predniSONE [predniSONE Tab] 20 mg PO BID #10 tab - Follow Up Plan Condition: GOOD Disposition: HOME/ ROUTINE Instructions: Prednisone (By mouth), Aspirin (By mouth), Angina (DC), Coronary Artery Disease (DC), Left Heart Catheterization (DC), Pneumococcal Vaccine for Adults (DC), Influenza Vaccine (DC), Dyspnea (GEN), Coronary Artery Disease in Women (DC) Additional Instructions: Please continue to take the following medications: Prednisone 20mg by mouth twice a day for 5 days Motrin as needed Glipizide 5mg by mouth daily Benazepril- HCTZ 1 tab by mouth daily Norvasc 5 mg by mouth daily Ventolin as needed Prilosec 20mg by mouth daily Asa 81mg PO daily Please follow up with Dr. Rosales (lung doctor) in 1 week to arrange for the sleep study test. Please follow up with your Road Traffic Controller - Dr. Kobe Knight within 1 week. Please return to the ED if your symptoms worsen or return. Referrals: Juan Pablo Garcia MD [Non-Staff] - Ruthann Rosales MD [Staff Provider] - Kobe Knight MD [Staff Provider] - <Sheri Hernandes V - Last Filed: 01/18/17 11:02> Provider - Provider Date of Admission: 01/15/17 17:43 Attending physician: hSeri Hernandes, Hospital Course - Lab Results Lab Results: Most Recent Lab Values WBC 8.9 K/uL (4.8-10.8) 01/18/17 08:05 RBC 4.26 Mil/uL (3.80-5.20) 01/18/17 08:05 Hgb 12.8 g/dL (11.0-16.0) 01/18/17 08:05 Hct 38.8 % (34.0-47.0) 01/18/17 08:05 MCV 91.0 fL (81.0-99.0) 01/18/17 08:05 MCH 30.0 pg (27.0-31.0) 01/18/17 08:05 MCHC 33.0 g/dL (33.0-37.0) 01/18/17 08:05 RDW 13.7 % (11.5-14.5) 01/18/17 08:05 Plt Count 278 K/uL (130-400) 01/18/17 08:05 MPV 9.6 fL (7.2-11.7) 01/18/17 08:05 Neut % (Auto) 90.4 % (50.0-75.0) H 01/18/17 08:05 Lymph % (Auto) 6.6 % (20.0-40.0) L 01/18/17 08:05 [place] % (Auto) 2.7 % (0.0-10.0) 01/18/17 08:05 Eos % (Auto) 0.0 % (0.0-4.0) 01/18/17 08:05 Baso % (Auto) 0.3 % (0.0-2.0) 01/18/17 08:05 Neut # 8.0 K/uL (1.8-7.0) H 01/18/17 08:05 Lymph # 0.6 K/uL (1.0-4.3) L 01/18/17 08:05 [place] # 0.2 K/uL (0.0-0.8) 01/18/17 08:05 Eos # 0.0 K/uL (0.0-0.7) 01/18/17 08:05 Baso # 0.0 K/uL (0.0-0.2) 01/18/17 08:05 Neutrophils % (Manual) 89 % (50-75) H 01/18/17 08:05 Band Neutrophils % 2 % (0-2) 01/18/17 08:05 Lymphocytes % (Manual) 7 % (20-40) L 01/18/17 08:05 Monocytes % (Manual) 1 % (0-10) 01/18/17 08:05 Eosinophils % (Manual) 1 % (0-4) 01/18/17 08:05 Platelet Estimate Normal (NORMAL) 01/18/17 08:05 Large Platelets Present 01/18/17 08:05 RBC Morphology Normal 01/17/17 07:37 PT 10.7 SECONDS (9.7-12.2) 01/15/17 14:04 INR 1.0 01/15/17 14:04 APTT 32 SECONDS (21-34) 01/16/17 16:48 D-Dimer, Quantitative < 200 ng/mlDDU (0-243) 01/15/17 14:04 Puncture Site Rr 01/16/17 09:13 pCO2 28 mm/Hg (35-45) L 01/16/17 09:13 pO2 88 mm/Hg (80-100) 01/16/17 09:13 HCO3 23.4 mmol/L (21-28) 01/16/17 09:13 ABG pH 7.47 (7.35-7.45) H 01/16/17 09:13 ABG Total CO2 21.3 mmol/L (22-28) L 01/16/17 09:13 ABG O2 Saturation 98.9 % (95-98) H 01/16/17 09:13 ABG Base Excess -2.0 mmol/L (-2.0-3.0) 01/16/17 09:13 Lisandro Test Pos 01/16/17 09:13 ABG Potassium 3.3 mmol/L (3.6-5.2) L 01/16/17 09:13 A-a O2 Difference 91.0 mm/Hg 01/16/17 09:13 Respiratory Index 1.0 01/16/17 09:13 Sodium 138.0 mmol/l (132-148) 01/16/17 09:13 Chloride 107.0 mmol/L (98-107) 01/16/17 09:13 Glucose 236 mg/dl (65-105) H 01/16/17 09:13 Lactate 2.1 mmol/L (0.7-2.1) 01/16/17 09:13 Liter Flow 3.0 01/16/17 09:13 FiO2 30.0 % 01/16/17 09:13 Sodium 133 mmol/L (132-148) 01/18/17 08:05 Potassium 4.4 mmol/L (3.6-5.2) 01/18/17 08:05 Chloride 96 mmol/L (98-107) L 01/18/17 08:05 Carbon Dioxide 19 mmol/L (22-30) L 01/18/17 08:05 Anion Gap 22 (10-20) H 01/18/17 08:05 BUN 27 mg/dL (7-17) H 01/18/17 08:05 Creatinine 0.7 MG/DL (0.7-1.2) 01/18/17 08:05 Est GFR ( Amer) > 60 01/18/17 08:05 Est GFR (Non-Af Amer) > 60 01/18/17 08:05 POC Glucose (mg/dL) 267 mg/dL (65-110) H 01/18/17 06:33 Random Glucose 260 mg/dL (65-105) H 01/18/17 08:05 Hemoglobin A1c 9.7 % (4.2-6.5) H 01/16/17 08:17 Calcium 8.9 mg/dl (8.6-10.4) 01/18/17 08:05 Total Bilirubin 0.5 mg/dL (0.2-1.3) 01/18/17 08:05 AST 28 U/L (14-36) 01/18/17 08:05 ALT 47 U/L (9-52) 01/18/17 08:05 Alkaline Phosphatase 90 U/L (38-126) 01/18/17 08:05 Total Creatine Kinase 53 U/L (30-135) 01/16/17 02:20 CK-MB (Mass) 0.38 ng/mL (0.0-3.38) 01/16/17 02:20 Troponin I < 0.0120 ng/mL (0.00-0.120) 01/15/17 14:06 Troponin I, Quant < 0.0120 ng/mL (0.00-0.120) 01/16/17 02:20 NT-Pro-B Natriuret Pep 58.5 pg/mL (0-900) 01/15/17 14:06 Total Protein 6.8 g/dL (6.3-8.3) 01/18/17 08:05 Albumin 3.9 g/dL (3.5-5.0) 01/18/17 08:05 Globulin 2.9 gm/dL (2.2-3.9) 01/18/17 08:05 Albumin/Globulin Ratio 1.4 (1.0-2.1) 01/18/17 08:05 Triglycerides 181 mg/dL (0-149) H 01/16/17 13:10 Cholesterol 175 mg/dL (0-199) 01/16/17 13:10 LDL Cholesterol Direct 74 mg/dL (0-129) 01/16/17 13:10 HDL Cholesterol 76 mg/dL (30-70) H 01/16/17 13:10 Arterial Blood Potassium 3.3 mmol/L (3.6-5.2) L 01/16/17 09:13 Ur L.pneumophila Ag Cancelled 01/16/17 11:28 Mycoplasma pneumon IgM Negative (NEGATIVE) 01/16/17 11:28 Attending/Attestation - Attestation I have personally seen and examined this patient.: Yes I have fully participated in the care of the patient.: Yes I have reviewed all pertinent clinical information, including history, physical exam and plan: Yes Notes (Text): Patient seen, examined and case discussed with day-time resident. Patient seen at bedside this morning. Patient is breathing better. Patient denies chest pain, denies shortness of breathe, denies headache, denies abdominal pain, denies nausea, reports she is moving her bowels ok, denies urinary complaints. Right cath site: intact, nontender. Resident spoke with Dr. Carlin, cardiology, this morning, patient is stable from his standpoint, Recommended to follow-up with her llama farmer, Dr. Kobe Knight in one week. Resident spoke with Dr. Rosales, pulmonary, this morning, patient is stable from his standpoint, recommended for sleep studies and to follow-up in his office in on week. New prescription: 1) Aspirin 81mg Po daily as cardioprotective agent 2) Prednisone 40mg PO daily X5 days to take with food This is a summary of patient's hospitalization. Please see EMR for further details. Discharge diagnoses: 1) Shortness of breath--Stable * CT chest (01/15/17): suboptimal opacification of pulmonary arteries due to limiting evaluation for PE. No visible intraluminal filling defects within the central pulmonary arteries to suggest central PE. No focal consolidation. No pleural effusion. No pneumothorax. Dense coronary artery calcifications. Mildly heterogeneous appearance of the included portions inferior thyroid gland. Limited visualized portions of the upper abdomen demonstrates bilateral low density renal lesions, likely cysts. Hypotenuattion of liver compute stent with hepatic steatosis * Doppler r/o DVT, f/u final read * d-dimer:negative * History of Asthma-->mild exacerbation; given Solumedrol 40mg IVP X1 on admission-->on discharge prednisone 40mg PO daily X5 days, recommended to followup with Dr. rosaels within one week of discharge for sleep studies and follow-up 2) h/o asthma; mild exacerbation--Stable * Pulmonary, Dr. Rosales on consult * ABG ordered * Given Solumedrol 40mg IV X1 on admission * albuterol 3ml Q6HR PRN * Decrease to Solumedrol 40mg IV Q12H * Triggers: Allergies trees, weather changes * CT chest (01/15/17): suboptimal opacification of pulmonary arteries due to limiting evaluation for PE. No visible intraluminal filling defects within the central pulmonary arteries to suggest central PE. No focal consolidation. No pleural effusion. No pneumothorax. Dense coronary artery calcifications. Mildly heterogeneous appearance of the included portions inferior thyroid gland. Limited visualized portions of the upper abdomen demonstrates bilateral low density renal lesions, likely cysts. Hypotenuattion of liver compute stent with hepatic steatosis * On discharge: prednisone 40mg PO daily X5 days, recommended to followup with Dr. rosales within one week of discharge for sleep studies and follow-up 3) Abnormal stress test-->resolved * Cardiology Consult: Dr. Carlin help appreciated * MAZIN X3: negative * Prior to cath, mucomyst 20% 4ml Q12H and NS 50cc/hr * ASA 81mg PO daily * Cardiac cath today-->nonobstructive coronaries and normal EF * Per cardiology, patient is stable for discharge. Recommended to follow-up with patient's llama farmer, Dr. Kobe Knight within one week of discharge. 4) Diabetes-->Chronic * Accucheck QACHS * A1c:9.7 uncontrolled Lipid Panel: T, chol: 175, LDL:74 HDL:76 * Hypoglycemic protocol in place during hospitalization * Patient to resume home medications on discharge 5) Hypertension * benzapril/hydrochlorothiazide equivalent-->benzapril not available on hospital formulary-->start on hospital equivalent: Enalapril 10mg PO daily and HCTZ 12.5mg PO daily * Hydralazine 10mg IVQ6H PRN SBP>160 * Norvasc 5mg PO daily * Patient to resume home medications upon discharge 6) Tobacco use history-->Stable * stopped 15 years ago * Tobacco cessation provided 7) Depression, Alcohol abuse==>chronic * Triggered by brother's suicide * declined psychiatry help during stay at this time * Ambien 5mg PO qHS (takes 10mg PO qhs for insomnia at [facility]) * Patient to resume home medications on discharge. 8) Prophylactic care * PT: home with services * Pepcid 20 mg IV Q12 * Heparin dvt ppx
[2017-01-18 09:16] VITALS: TEMP 97.4; O2SAT 92
[2017-01-18] MEDS ORDERED: Influenza Vaccine 60 mcg/0.5 mL SYR (4YR UP) IM ONE ×2 (09:45→12:00)
[2017-01-18] MEDS: MethylPREDNISolone 40 mg Vial IVP SCH (09:58)
[2017-01-18 10:00] VITALS: BP 154/93
[2017-01-18] MEDS ORDERED: Influenza Virus Vaccine (Afluria Inactive dont use ) IM ONE (10:00)
[2017-01-18] MEDS ORDERED: Pneumococcal 23-Valent Vaccine IM ONE (10:00)
[2017-01-18 10:29] LABS: EOSINOPHIL 1 % (0-4); NEUTROPHIL 89 % (50-75); TOTAL CELLS COUNTED 100
[2017-01-18 10:30] LABS: LARGE PLATELETS PRESENT
[2017-01-18 10:55] VITALS: PULSE 116
--- NOTE | 2017-01-19 10:01 | CARDCATH ---
PROCEDURE DATE: 01/17/2017 PROCEDURES: 1. Left heart catheterization. 2. Coronary angiogram. 3. Radiological supervision and interpretation of the left heart catheterization and coronary angiogram. CLINICAL INDICATIONS: 1. Angina. 2. Dyspnea. 3. Diabetes. 4. Hypertension. 5. Hyperlipidemia. 6. Abnormal stress test. REFERRING PHYSICIAN: Kobe Knight MD PERFORMING PHYSICIAN: Jordin Carlin MD PROCEDURE: After informed consent, the patient was prepped and draped in the usual sterile fashion. A 2% lidocaine was given on the right groin for local anesthesia. Using the micropuncture technique, [place] sheath was introduced into right common femoral artery. JL4 6[place] diagnostic catheter engaged into left main coronary artery. Left coronary angiogram was performed uneventfully. JR4 6-[place] diagnostic catheter engaged into right coronary artery. A right coronary angiogram was performed uneventfully. A 6[place] pigtail catheter passed into left ventricle across the aortic valve. Left ventricular angiogram was performed with manual injection. Radiological interpretation and supervision of the coronary angiogram and left heart catheter performed. FINDINGS: 1. Left main coronary artery is patent. 2. LAD and diagonal branches are patent. 3. Proximal left circumflex is patent. Mid left circumflex has a 50% nonobstructive stenosis. Distal left circumflex coronary artery and obtuse marginal branches are patent. 4. Right coronary artery is dominant. Proximal, mid and distal right coronary arteries are patent. PLV branch has a 50% nonobstructive stenosis. 5. LV ejection fraction is 60%. No wall motion abnormalities noted. EDP is 20. CONCLUSION: 1. Nonobstructive coronaries. 2. Normal LV systolic function. Recommend medical management. Jordin Carlin MD
--- NOTE | 2017-01-20 13:08 | CARD ---
APPROVED REPORT EKG Measurement Heart [id number] <Conclusion> Sinus tachycardia Otherwise normal ECG
== END 2017-01-18 11:07 | disposition home or self-care (01) | DRG 125 ==
LOC: C.ER 13:25 → C.9E 17:43 → C.5S 21:13
PROVIDERS: ADMIT Hospitalist; ATTEND Hospitalist
PROC: B2111ZZ Fluoroscopy of Multiple Coronary Arteries using Low Osmolar Contrast (ICD-10-PCS; 2017-01-17)
PROC: B2151ZZ Fluoroscopy of Left Heart using Low Osmolar Contrast (ICD-10-PCS; 2017-01-17)
PROC: 4A023N7 Measurement of Cardiac Sampling and Pressure, Left Heart, Percutaneous Approach (ICD-10-PCS; principal; 2017-01-17 11:00)
DX: I77.1 Stricture of artery (principal); I10 Essential (primary) hypertension; Z72.0 Tobacco use; M10.9 Gout, unspecified; G47.00 Insomnia, unspecified; F41.9 Anxiety disorder, unspecified; F32.9 Major depressive disorder, single episode, unspecified; E78.5 Hyperlipidemia, unspecified; E11.9 Type 2 diabetes mellitus without complications; F10.10 Alcohol abuse, uncomplicated

== ENCOUNTER 2018-06-10 08:24 | Outpatient (CLI) | payer MEDICARE, MEDICAID | END 2018-06-10 08:25 | disposition home or self-care (01) | LOC: C.MAMMO 08:24 | DX: Z12.31 Encounter for screening mammogram for malignant neoplasm of breast (principal) ==